=== PATIENT | female | born 1975 | race Two or more races ===

== ENCOUNTER 2019-08-05 11:00 | Inpatient (IN) | payer MEDICAID, OTHER ==
[~2019-08-05] VITALS: Ht 167.6 cm; Wt 91.2 kg
[2019-08-05] MEDS ORDERED: PANTOPRAZOLE 40 MG/10 ML VIAL INJ IV STA (11:36)
[2019-08-05] MEDS ORDERED: SODIUM CHLORIDE 0.9% 1,000 ML IVB ONE (11:36)
[2019-08-05] MEDS ORDERED: ONDANSETRON HCL 4 MG/2 ML VIAL IV ONE (11:45)
[2019-08-05] MEDS ORDERED: MORPHINE SULFATE 4 MG/ML SYR/VIAL IV ONE (11:45)
[2019-08-05 11:53] LABS: Urine WBC None Seen /hpf (0 - 5)
[2019-08-05 11:56] LABS: Eosinophils # (auto) 0 10 ^3/uL (0-0.8); Eosinophils % (auto) 0.2 % (0.0-7.0); Hematocrit 38.5 % (36.0-46.0); Mean Corpuscular Volume 75.8 fL (80.0-100.0); Monocytes # (auto) 0.7 10 ^3/uL (0-1.3); Monocytes % (auto) 4.8 % (0.0-12.0); Nucleated Red Blood Cells % 0.1 %
[2019-08-05 11:59] LABS: Basophils # (auto) 0 10 ^3/uL (0-0.2); Basophils % (auto) 0.3 % (0.0-2.0); Hemoglobin 12.5 g/dL (12.2-16.2); Lymphocytes # (auto) 2.4 10 ^3/uL (0.4-5.4); Lymphocytes % (auto) 16.1 % (10.0-50.0); Mean Corpuscular Hemoglobin 24.6 pg (28.0-32.0); Mean Corpuscular Hgb Conc. 32.4 g/dL (32.0-36.0); Neutrophils # (auto) 11.5 10 ^3/uL (1.6-8.6); Neutrophils % (auto) 78.6 % (37.0-80.0); Platelet Count (auto) 251 10^3/uL (140-450); Red Blood Cells 5.09 10^6/uL (4.0-5.20); Red Cell Distribution Width 15.2 % (11.8-14.3); White Blood Cell 14.7 10^3/uL (4.4-10.8)
[2019-08-05 12:19] LABS: Albumin 3.8 g/dL (3.4-5.0); Calcium 8.6 mg/dL (8.5-10.1); Potassium 4.1 mmol/L (3.5-5.1)
[2019-08-05 12:23] LABS: BUN/Creatinine Ratio 12.9; Bilirubin, Total 0.5 mg/dL (0.2-1.0)
[2019-08-05 12:39] LABS: Urine Bacteria NONE SEEN /hpf (None Seen); Urine Blood 3+ /uL (Negative); Urine Mucus FEW (None Seen)
[2019-08-05] MEDS ORDERED: PIPERACILLIN-TAZOB 3.375GM 100 ML IV ONE (13:00)
[2019-08-05] MEDS ORDERED: HYDROmorphone HCL 2 MG/ML VL IV ONE (14:15)
[2019-08-05] MEDS ORDERED: DEXTROSE (50%) 50ML SYRG IV PRN ×2 (15:15→18:15)
[2019-08-05] MEDS ORDERED: cefTRIAXone 1GM/50ML D5W 50 ML IV ONE (15:15)
[2019-08-05] MEDS ORDERED: MORPHINE SULF INJ 2 MG/ML SYRINGE 1ML IV PRN (15:15)
[2019-08-05] MEDS ORDERED: MANNITOL FTV 25% 12.5 GM/50 ML 50 ML IV ONE (16:15)
[2019-08-05 17:06] VITALS: BP 157/89
[2019-08-05] MEDS: SODIUM CHLORIDE 0.9% 1,000 ML IV SCH (17:07)
[2019-08-05] MEDS: FAMOTIDINE (10MG/ML) 2ML VL IV SCH (17:08)
[2019-08-05] MEDS: ONDANSETRON HCL 4 MG/2 ML VIAL IV SCH (17:08)
[2019-08-05] MEDS: MORPHINE SULF INJ 2 MG/ML SYRINGE 1ML IV PRN ×2 (17:09→22:25)
[2019-08-05] MEDS: TAMSULOSIN HYDROCHLORIDE 0.4 MG CAP PO SCH ×2 (17:22→20:08)
[2019-08-05] MEDS ORDERED: ACCU-CHEK COMFORT CURVE STRIP VI SCH (18:00)
[2019-08-05] MEDS: KETOROLAC TROMETH 30 MG/ML 1ML VIAL IV PRN (20:07)
[2019-08-05] MEDS: metroNIDAZOLE 500MG/100ML 100 ML IV SCH (20:07)
[2019-08-05] MEDS: PROMETHAZINE HCL 25 MG/ML 1ML IV PRN (20:08)
[2019-08-05 21:00] VITALS: BP 139/83
[2019-08-05] MEDS: InsuLIN REG 1unit/0.01ml Soln (100units/ml) SC SCH (22:00)
[2019-08-05] MEDS: ACCU-CHEK COMFORT CURVE STRIP VI SCH (22:10)
[2019-08-06 04:30] VITALS: BP 129/66
[2019-08-06] MEDS: SODIUM CHLORIDE 0.9% 1,000 ML IV SCH ×3 (04:56→20:36)
[2019-08-06] MEDS: FAMOTIDINE (10MG/ML) 2ML VL IV SCH ×2 (04:56→15:43)
[2019-08-06] MEDS: ONDANSETRON HCL 4 MG/2 ML VIAL IV SCH ×4 (05:21→17:42)
[2019-08-06] MEDS: metroNIDAZOLE 500MG/100ML 100 ML IV SCH ×3 (05:21→22:37)
[2019-08-06] MEDS: ACCU-CHEK COMFORT CURVE STRIP VI SCH ×4 (06:23→22:00)
[2019-08-06] MEDS: InsuLIN REG 1unit/0.01ml Soln (100units/ml) SC SCH ×4 (06:24→23:01)
[2019-08-06 07:43] LABS: Basophils # (auto) 0 10 ^3/uL (0-0.2); Eosinophils # (auto) 0 10 ^3/uL (0-0.8); Monocytes # (auto) 0.5 10 ^3/uL (0-1.3); Red Blood Cells 4.57 10^6/uL (4.0-5.20)
[2019-08-06 07:45] LABS: Basophils % (auto) 0.2 % (0.0-2.0); Hemoglobin 11.4 g/dL (12.2-16.2); Lymphocytes # (auto) 0.7 10 ^3/uL (0.4-5.4); Lymphocytes % (auto) 4.5 % (10.0-50.0); Mean Corpuscular Hemoglobin 24.9 pg (28.0-32.0); Mean Corpuscular Hgb Conc. 32.5 g/dL (32.0-36.0); Mean Corpuscular Volume 76.6 fL (80.0-100.0); Monocytes % (auto) 3.2 % (0.0-12.0); Neutrophils % (auto) 92.1 % (37.0-80.0); Platelet Count (auto) 184 10^3/uL (140-450); Red Cell Distribution Width 15.7 % (11.8-14.3); White Blood Cell 16.3 10^3/uL (4.4-10.8)
[2019-08-06 08:01] LABS: Albumin 2.8 g/dL (3.4-5.0); BUN/Creatinine Ratio 10.8; Calcium 7.7 mg/dL (8.5-10.1); Potassium 3.3 mmol/L (3.5-5.1)
[2019-08-06 08:04] LABS: Bilirubin, Total 0.8 mg/dL (0.2-1.0)
[2019-08-06] MEDS: KETOROLAC TROMETH 30 MG/ML 1ML VIAL IV PRN ×3 (08:15→22:37)
[2019-08-06 09:00] VITALS: BP 122/69
[2019-08-06] MEDS: cefTRIAXone 1GM/50ML D5W 50 ML IV SCH (09:57)
[2019-08-06 12:36] VITALS: BP 134/72
[2019-08-06] MEDS: MORPHINE SULF INJ 2 MG/ML SYRINGE 1ML IV PRN ×2 (12:58→19:59)
[2019-08-06] MEDS ORDERED: POTASSIUM EFFERVESENT TAB 25 MEQ PO ONE (14:45)
[2019-08-06 17:36] VITALS: BP 135/75
[2019-08-06] MEDS: TAMSULOSIN HYDROCHLORIDE 0.4 MG CAP PO SCH (17:42)
[2019-08-06 22:00] VITALS: BP 137/71
[2019-08-06] MEDS: ACETAMINOPHEN 325 MG TAB PO PRN (22:38)
[2019-08-07] MEDS: ONDANSETRON HCL 4 MG/2 ML VIAL IV SCH ×4 (00:57→18:19)
[2019-08-07] MEDS: FAMOTIDINE (10MG/ML) 2ML VL IV SCH ×2 (03:22→15:15)
[2019-08-07] MEDS: MORPHINE SULF INJ 2 MG/ML SYRINGE 1ML IV PRN ×3 (04:36→20:09)
[2019-08-07 05:00] VITALS: BP 121/73
[2019-08-07] MEDS: metroNIDAZOLE 500MG/100ML 100 ML IV SCH ×3 (05:58→22:27)
[2019-08-07] MEDS: KETOROLAC TROMETH 30 MG/ML 1ML VIAL IV PRN (05:59)
[2019-08-07] MEDS: ACCU-CHEK COMFORT CURVE STRIP VI SCH ×4 (07:03→22:27)
[2019-08-07] MEDS: SODIUM CHLORIDE 0.9% 1,000 ML IV SCH ×2 (07:03→18:20)
[2019-08-07] MEDS: InsuLIN REG 1unit/0.01ml Soln (100units/ml) SC SCH ×4 (07:04→22:00)
[2019-08-07 08:57] VITALS: BP 123/76
[2019-08-07 09:58] LABS: Basophils # (auto) 0 10 ^3/uL (0-0.2); Eosinophils # (auto) 0 10 ^3/uL (0-0.8); Hemoglobin 10.6 g/dL (12.2-16.2); Lymphocytes # (auto) 0.6 10 ^3/uL (0.4-5.4); Red Cell Distribution Width 15.4 % (11.8-14.3)
[2019-08-07 10:01] LABS: Basophils % (auto) 0.1 % (0.0-2.0); Hematocrit 32.1 % (36.0-46.0); Lymphocytes % (auto) 5.6 % (10.0-50.0); Mean Corpuscular Hemoglobin 25.2 pg (28.0-32.0); Mean Corpuscular Volume 76.3 fL (80.0-100.0); Monocytes # (auto) 0.5 10 ^3/uL (0-1.3); Monocytes % (auto) 5.4 % (0.0-12.0); Neutrophils # (auto) 8.8 10 ^3/uL (1.6-8.6); Neutrophils % (auto) 88.9 % (37.0-80.0); Platelet Count (auto) 151 10^3/uL (140-450); Red Blood Cells 4.21 10^6/uL (4.0-5.20); White Blood Cell 9.9 10^3/uL (4.4-10.8)
[2019-08-07] MEDS: cefTRIAXone 1GM/50ML D5W 50 ML IV SCH (10:06)
[2019-08-07 10:18] LABS: Calcium 7.8 mg/dL (8.5-10.1); Potassium 3.2 mmol/L (3.5-5.1)
[2019-08-07 10:21] LABS: BUN/Creatinine Ratio 11.7
[2019-08-07 10:31] LABS: INR 1.17 (0.9-1.15)
[2019-08-07] MEDS: ACETAMINOPHEN 325 MG TAB PO PRN (11:21)
[2019-08-07 13:00] VITALS: BP 135/72
[2019-08-07] MEDS ORDERED: POTASSIUM EFFERVESENT TAB 25 MEQ PO ONE (16:30)
[2019-08-07] MEDS: TAMSULOSIN HYDROCHLORIDE 0.4 MG CAP PO SCH (18:19)
[2019-08-07 21:00] VITALS: BP 134/79
[2019-08-08] MEDS: ONDANSETRON HCL 4 MG/2 ML VIAL IV SCH ×4 (00:23→17:23)
[2019-08-08] MEDS: MORPHINE SULF INJ 2 MG/ML SYRINGE 1ML IV PRN ×2 (02:25→18:37)
[2019-08-08] MEDS: SODIUM CHLORIDE 0.9% 1,000 ML IV SCH ×3 (03:59→23:06)
[2019-08-08] MEDS: FAMOTIDINE (10MG/ML) 2ML VL IV SCH ×2 (04:00→17:22)
[2019-08-08 05:00] VITALS: BP 143/81
[2019-08-08] MEDS: KETOROLAC TROMETH 30 MG/ML 1ML VIAL IV PRN ×2 (05:55→20:35)
[2019-08-08] MEDS: metroNIDAZOLE 500MG/100ML 100 ML IV SCH ×3 (06:10→21:39)
[2019-08-08] MEDS: ACCU-CHEK COMFORT CURVE STRIP VI SCH ×4 (06:11→21:39)
[2019-08-08] MEDS: InsuLIN REG 1unit/0.01ml Soln (100units/ml) SC SCH ×4 (06:11→21:40)
[2019-08-08 06:23] LABS: Basophils # (auto) 0 10 ^3/uL (0-0.2); Basophils % (auto) 0.1 % (0.0-2.0); Eosinophils # (auto) 0 10 ^3/uL (0-0.8); Eosinophils % (auto) 0.1 % (0.0-7.0); Hemoglobin 9.8 g/dL (12.2-16.2); Red Cell Distribution Width 15.2 % (11.8-14.3)
[2019-08-08 06:25] LABS: Lymphocytes # (auto) 1.3 10 ^3/uL (0.4-5.4); Lymphocytes % (auto) 10.5 % (10.0-50.0); Mean Corpuscular Hemoglobin 24.9 pg (28.0-32.0); Mean Corpuscular Hgb Conc. 32.5 g/dL (32.0-36.0); Mean Corpuscular Volume 76.7 fL (80.0-100.0); Monocytes # (auto) 0.9 10 ^3/uL (0-1.3); Neutrophils # (auto) 10.1 10 ^3/uL (1.6-8.6); Neutrophils % (auto) 82.3 % (37.0-80.0); Platelet Count (auto) 162 10^3/uL (140-450); Red Blood Cells 3.92 10^6/uL (4.0-5.20); White Blood Cell 12.3 10^3/uL (4.4-10.8)
[2019-08-08 06:53] LABS: BUN/Creatinine Ratio 15.4; Calcium 7.7 mg/dL (8.5-10.1); Potassium 3.1 mmol/L (3.5-5.1)
[2019-08-08 09:00] VITALS: BP 136/82
[2019-08-08] MEDS: cefTRIAXone 1GM/50ML D5W 50 ML IV SCH (09:27)
[2019-08-08 13:00] VITALS: BP 128/80
[2019-08-08] MEDS ORDERED: ceFAZolin 1GM/50ML 50 ML IV ONE (13:12)
[2019-08-08] MEDS ORDERED: SUCCINYLCHOLINE CHLORIDE 20 MG/ML 10ML VIAL IV ONE (13:29)
[2019-08-08] MEDS ORDERED: LIDOCAINE 1% (LOCAL ANESTH.) PF 5ml SDV ONE (13:29)
[2019-08-08] MEDS ORDERED: MIDAZOLAM HCL 1MG/1ML-2 ML VIAL ONE (13:39)
[2019-08-08] MEDS ORDERED: PROPOFOL 10 MG/ML 20 ML IV ONE (13:46)
[2019-08-08] MEDS ORDERED: fentaNYL CITRATE 100 MCG/2 ML VL ONE (13:54)
[2019-08-08] MEDS ORDERED: HYDROmorphone HCL 2 MG/ML VL IV PRN ×2 (14:15)
[2019-08-08] MEDS ORDERED: ACCU-CHEK COMFORT CURVE STRIP VI ONE (14:15)
[2019-08-08] MEDS ORDERED: ONDANSETRON HCL 4 MG/2 ML VIAL IV PRN (14:15)
[2019-08-08] MEDS ORDERED: POTASSIUM EFFERVESENT TAB 25 MEQ PO ONE (14:15)
[2019-08-08] MEDS ORDERED: NALOXONE HCL 0.4 MG/ML VIAL IV PRN (14:15)
[2019-08-08] MEDS: IOHEXOL 300 MG/ML 100ML BOTTLE IJ ONE ×2 (14:30→17:21)
[2019-08-08 16:00] VITALS: BP 146/82
[2019-08-08] MEDS: TAMSULOSIN HYDROCHLORIDE 0.4 MG CAP PO SCH (17:23)
[2019-08-08 20:00] VITALS: BP 130/81
[2019-08-08 21:32] VITALS: BP 130/81
[2019-08-09] MEDS: ONDANSETRON HCL 4 MG/2 ML VIAL IV SCH ×4 (00:08→18:00)
[2019-08-09] MEDS: FAMOTIDINE (10MG/ML) 2ML VL IV SCH ×2 (03:29→14:50)
[2019-08-09] MEDS: KETOROLAC TROMETH 30 MG/ML 1ML VIAL IV PRN ×3 (03:35→21:56)
[2019-08-09 05:00] VITALS: BP 131/82
[2019-08-09] MEDS: metroNIDAZOLE 500MG/100ML 100 ML IV SCH ×3 (06:03→21:48)
[2019-08-09] MEDS: InsuLIN REG 1unit/0.01ml Soln (100units/ml) SC SCH ×4 (06:13→21:49)
[2019-08-09] MEDS: ACCU-CHEK COMFORT CURVE STRIP VI SCH ×4 (06:16→21:48)
[2019-08-09] MEDS: SODIUM CHLORIDE 0.9% 1,000 ML IV SCH (06:20)
[2019-08-09 06:32] LABS: Basophils # (auto) 0 10 ^3/uL (0-0.2); Eosinophils # (auto) 0 10 ^3/uL (0-0.8); Eosinophils % (auto) 0.3 % (0.0-7.0); Hemoglobin 8.9 g/dL (12.2-16.2); Mean Corpuscular Volume 76.5 fL (80.0-100.0); Monocytes # (auto) 0.8 10 ^3/uL (0-1.3); Neutrophils # (auto) 8.8 10 ^3/uL (1.6-8.6); Platelet Count (auto) 162 10^3/uL (140-450); White Blood Cell 11.2 10^3/uL (4.4-10.8)
[2019-08-09 06:36] LABS: Basophils % (auto) 0.2 % (0.0-2.0); Hematocrit 27.8 % (36.0-46.0); Lymphocytes # (auto) 1.4 10 ^3/uL (0.4-5.4); Lymphocytes % (auto) 12.7 % (10.0-50.0); Mean Corpuscular Hemoglobin 24.5 pg (28.0-32.0); Mean Corpuscular Hgb Conc. 32.1 g/dL (32.0-36.0); Monocytes % (auto) 7.6 % (0.0-12.0); Neutrophils % (auto) 79.2 % (37.0-80.0); Red Blood Cells 3.63 10^6/uL (4.0-5.20); Red Cell Distribution Width 14.9 % (11.8-14.3)
[2019-08-09 06:51] LABS: Potassium 3.2 mmol/L (3.5-5.1)
[2019-08-09 07:00] LABS: BUN/Creatinine Ratio 17.1; Calcium 7.7 mg/dL (8.5-10.1)
[2019-08-09 08:39] VITALS: BP 136/86
[2019-08-09] MEDS: cefTRIAXone 1GM/50ML D5W 50 ML IV SCH (10:30)
[2019-08-09] MEDS ORDERED: POTASSIUM EFFERVESENT TAB 25 MEQ PO ONE (10:45)
[2019-08-09 13:00] VITALS: BP 142/88
[2019-08-09 15:43] LABS: Basophils # (auto) 0 10 ^3/uL (0-0.2); Eosinophils # (auto) 0.1 10 ^3/uL (0-0.8); Lymphocytes # (auto) 1.9 10 ^3/uL (0.4-5.4); Mean Corpuscular Hemoglobin 24.2 pg (28.0-32.0); Mean Corpuscular Hgb Conc. 31.7 g/dL (32.0-36.0); White Blood Cell 12.8 10^3/uL (4.4-10.8)
[2019-08-09 15:45] LABS: Basophils % (auto) 0.1 % (0.0-2.0); Eosinophils % (auto) 0.4 % (0.0-7.0); Hematocrit 29.8 % (36.0-46.0); Hemoglobin 9.4 g/dL (12.2-16.2); Lymphocytes % (auto) 14.9 % (10.0-50.0); Mean Corpuscular Volume 76.4 fL (80.0-100.0); Monocytes % (auto) 8.2 % (0.0-12.0); Neutrophils # (auto) 9.7 10 ^3/uL (1.6-8.6); Neutrophils % (auto) 76.4 % (37.0-80.0); Nucleated Red Blood Cells % 0.1 %; Platelet Count (auto) 200 10^3/uL (140-450); Red Cell Distribution Width 14.8 % (11.8-14.3)
[2019-08-09 16:32] VITALS: BP 158/88
[2019-08-09] MEDS: MORPHINE SULF INJ 2 MG/ML SYRINGE 1ML IV PRN ×2 (17:00→20:39)
[2019-08-09] MEDS: PROMETHAZINE HCL 25 MG/ML 1ML IV PRN (17:00)
[2019-08-09] MEDS: TAMSULOSIN HYDROCHLORIDE 0.4 MG CAP PO SCH (18:15)
[2019-08-09 20:00] VITALS: BP 151/93
[2019-08-09 21:37] LABS: INR 1.17 (0.9-1.15); Partial Thromboplastin Time 28.8 sec (23.64-32.05)
[2019-08-09 21:39] VITALS: BP 151/93
[2019-08-09] MEDS: D5W/SOD CHL 0.45%/KCL 20MEQ 1,000 ML IV SCH (21:48)
[2019-08-10] MEDS: ONDANSETRON HCL 4 MG/2 ML VIAL IV SCH ×5 (00:37→23:42)
[2019-08-10] MEDS: MORPHINE SULF INJ 2 MG/ML SYRINGE 1ML IV PRN ×2 (00:37→23:52)
[2019-08-10] MEDS: FAMOTIDINE (10MG/ML) 2ML VL IV SCH ×2 (03:11→14:20)
[2019-08-10] MEDS: D5W/SOD CHL 0.45%/KCL 20MEQ 1,000 ML IV SCH ×4 (04:05→23:53)
[2019-08-10 05:00] VITALS: BP 149/83
[2019-08-10] MEDS: KETOROLAC TROMETH 30 MG/ML 1ML VIAL IV PRN ×2 (05:20→14:15)
[2019-08-10] MEDS: ACCU-CHEK COMFORT CURVE STRIP VI SCH ×4 (06:37→21:37)
[2019-08-10] MEDS: InsuLIN REG 1unit/0.01ml Soln (100units/ml) SC SCH ×4 (06:38→21:37)
[2019-08-10] MEDS: metroNIDAZOLE 500MG/100ML 100 ML IV SCH ×3 (06:40→21:37)
[2019-08-10 07:45] LABS: Basophils # (auto) 0 10 ^3/uL (0-0.2); Hemoglobin 9.5 g/dL (12.2-16.2); Lymphocytes # (auto) 1.5 10 ^3/uL (0.4-5.4); Monocytes # (auto) 0.9 10 ^3/uL (0-1.3)
[2019-08-10 07:47] LABS: Basophils % (auto) 0.2 % (0.0-2.0); Eosinophils # (auto) 0.1 10 ^3/uL (0-0.8); Eosinophils % (auto) 0.6 % (0.0-7.0); Hematocrit 29.2 % (36.0-46.0); Lymphocytes % (auto) 13.9 % (10.0-50.0); Mean Corpuscular Hemoglobin 24.6 pg (28.0-32.0); Mean Corpuscular Hgb Conc. 32.5 g/dL (32.0-36.0); Mean Corpuscular Volume 75.6 fL (80.0-100.0); Monocytes % (auto) 8.3 % (0.0-12.0); Neutrophils # (auto) 8.5 10 ^3/uL (1.6-8.6); Platelet Count (auto) 207 10^3/uL (140-450); Red Blood Cells 3.86 10^6/uL (4.0-5.20); White Blood Cell 11.1 10^3/uL (4.4-10.8)
[2019-08-10 08:08] LABS: BUN/Creatinine Ratio 16.7; Calcium 7.9 mg/dL (8.5-10.1)
[2019-08-10] MEDS ORDERED: ceFAZolin 1GM/50ML 50 ML IV ONE (08:14)
[2019-08-10 09:00] VITALS: BP 148/85
[2019-08-10] MEDS ORDERED: POTASSIUM CHL 20MEQ/100ML 100 ML IV ONE (09:25)
[2019-08-10] MEDS ORDERED: fentaNYL CITRATE 100 MCG/2 ML VL ONE (09:28)
[2019-08-10] MEDS ORDERED: MIDAZOLAM HCL 1MG/1ML-2 ML VIAL ONE (09:28)
[2019-08-10] MEDS ORDERED: MEPERIDINE HCL (25 MG/ML) 1ML VIAL ONE (09:29)
[2019-08-10] MEDS ORDERED: NEOSTIGMINE 1 MG/ML INJ (10mg/10ML VIAL) IV ONE (09:29)
[2019-08-10] MEDS ORDERED: GLYCOPYRROLATE 0.2 MG/ML 1ML VIAL IV ONE (09:29)
[2019-08-10] MEDS ORDERED: DexAMETHasone SOD PHOS 10MG/1ML VIAL INJ ONE (09:29)
[2019-08-10] MEDS ORDERED: PHENYLEPHRINE HCL 10 MG/ML VL IV ONE (09:29)
[2019-08-10] MEDS ORDERED: PROPOFOL 10 MG/ML 20 ML IV ONE (09:29)
[2019-08-10] MEDS ORDERED: SUCCINYLCHOLINE CHLORIDE 20 MG/ML 10ML VIAL IV ONE (09:41)
[2019-08-10] MEDS ORDERED: POVIDONE IODINE 10 % TOPICAL OINT 30GM TOP ONE (09:43)
[2019-08-10] MEDS ORDERED: GLYCOPYRROLATE 0.2 MG/ML 1ML VIAL ONE (10:33)
[2019-08-10] MEDS ORDERED: NEOSTIGMINE 1 MG/ML INJ (10mg/10ML VIAL) ONE (10:33)
[2019-08-10] MEDS ORDERED: HYDROmorphone HCL 2 MG/ML VL IV PRN (11:00)
[2019-08-10] MEDS ORDERED: LABETALOL HCL 5 MG/ML 4ML SYRINGE IV PRN (11:00)
[2019-08-10] MEDS ORDERED: ONDANSETRON HCL 4 MG/2 ML VIAL IV PRN (11:00)
[2019-08-10] MEDS ORDERED: MORPHINE SULFATE 4 MG/ML SYR/VIAL IV PRN (11:00)
[2019-08-10] MEDS ORDERED: ePHEDrine SULFATE 50 MG/ML AMP IV PRN (11:00)
[2019-08-10] MEDS ORDERED: MIDAZOLAM HCL 1MG/1ML-2 ML VIAL IV PRN (11:00)
[2019-08-10] MEDS: cefTRIAXone 1GM/50ML D5W 50 ML IV SCH (12:39)
[2019-08-10 12:57] VITALS: BP 147/92
[2019-08-10 17:00] VITALS: BP 150/90
[2019-08-10] MEDS: TAMSULOSIN HYDROCHLORIDE 0.4 MG CAP PO SCH (19:02)
[2019-08-10 20:00] VITALS: BP 141/76
[2019-08-10 22:00] VITALS: BP 141/76
[2019-08-11] MEDS: FAMOTIDINE (10MG/ML) 2ML VL IV SCH ×2 (04:01→14:01)
[2019-08-11 05:00] VITALS: BP 142/87
[2019-08-11 06:02] LABS: Basophils # (auto) 0 10 ^3/uL (0-0.2); Basophils % (auto) 0.1 % (0.0-2.0); Eosinophils # (auto) 0 10 ^3/uL (0-0.8); Eosinophils % (auto) 0.1 % (0.0-7.0); Hemoglobin 9.2 g/dL (12.2-16.2)
[2019-08-11 06:04] LABS: Hematocrit 28.8 % (36.0-46.0); Lymphocytes # (auto) 2.1 10 ^3/uL (0.4-5.4); Lymphocytes % (auto) 12.9 % (10.0-50.0); Mean Corpuscular Hemoglobin 23.8 pg (28.0-32.0); Mean Corpuscular Hgb Conc. 31.8 g/dL (32.0-36.0); Monocytes # (auto) 1.2 10 ^3/uL (0-1.3); Monocytes % (auto) 7.1 % (0.0-12.0); Neutrophils # (auto) 12.9 10 ^3/uL (1.6-8.6); Neutrophils % (auto) 79.8 % (37.0-80.0); Platelet Count (auto) 237 10^3/uL (140-450); Red Blood Cells 3.85 10^6/uL (4.0-5.20); Red Cell Distribution Width 15.3 % (11.8-14.3); White Blood Cell 16.2 10^3/uL (4.4-10.8)
[2019-08-11 06:30] LABS: Potassium 3.4 mmol/L (3.5-5.1)
[2019-08-11] MEDS: metroNIDAZOLE 500MG/100ML 100 ML IV SCH ×3 (06:30→21:36)
[2019-08-11] MEDS: ACCU-CHEK COMFORT CURVE STRIP VI SCH ×4 (06:30→22:00)
[2019-08-11] MEDS: InsuLIN REG 1unit/0.01ml Soln (100units/ml) SC SCH ×4 (06:30→22:00)
[2019-08-11] MEDS: ONDANSETRON HCL 4 MG/2 ML VIAL IV SCH ×3 (06:32→18:00)
[2019-08-11] MEDS: MORPHINE SULF INJ 2 MG/ML SYRINGE 1ML IV PRN ×3 (06:43→21:36)
[2019-08-11 06:58] LABS: Albumin 2.2 g/dL (3.4-5.0); BUN/Creatinine Ratio 13.3; Calcium 7.9 mg/dL (8.5-10.1)
[2019-08-11 07:01] LABS: Bilirubin, Total 0.4 mg/dL (0.2-1.0); Total Protein 6.4 g/dL (6.4-8.2)
[2019-08-11 09:00] VITALS: BP 141/88
[2019-08-11] MEDS: cefTRIAXone 1GM/50ML D5W 50 ML IV SCH (10:41)
[2019-08-11 13:00] VITALS: BP 149/83
[2019-08-11] MEDS: SOD CHL 0.9%/ KCL 20MEQ 1,000 ML IV SCH (14:00)
[2019-08-11 17:00] VITALS: BP 139/92
[2019-08-11 20:00] VITALS: BP 144/96
[2019-08-11 22:00] VITALS: BP 144/96
[2019-08-12] MEDS: ONDANSETRON HCL 4 MG/2 ML VIAL IV SCH ×5 (02:36→22:15)
[2019-08-12] MEDS: FAMOTIDINE (10MG/ML) 2ML VL IV SCH (03:21)
[2019-08-12] MEDS: SOD CHL 0.9%/ KCL 20MEQ 1,000 ML IV SCH ×2 (03:21→15:54)
[2019-08-12 05:00] VITALS: BP 148/82
[2019-08-12 05:26] LABS: Basophils # (auto) 0.1 10 ^3/uL (0-0.2); Basophils % (auto) 0.3 % (0.0-2.0); Eosinophils # (auto) 0 10 ^3/uL (0-0.8); Eosinophils % (auto) 0.3 % (0.0-7.0); Hematocrit 31.8 % (36.0-46.0); Hemoglobin 10.8 g/dL (12.2-16.2); Lymphocytes # (auto) 2.3 10 ^3/uL (0.4-5.4); Lymphocytes % (auto) 14.3 % (10.0-50.0); Mean Corpuscular Hemoglobin 25.4 pg (28.0-32.0); Mean Corpuscular Volume 74.8 fL (80.0-100.0); Monocytes # (auto) 1.1 10 ^3/uL (0-1.3); Neutrophils # (auto) 12.6 10 ^3/uL (1.6-8.6); Neutrophils % (auto) 78.1 % (37.0-80.0); Nucleated Red Blood Cells % 0.1 %; Platelet Count (auto) 283 10^3/uL (140-450); Red Blood Cells 4.25 10^6/uL (4.0-5.20); Red Cell Distribution Width 15.4 % (11.8-14.3); White Blood Cell 16.2 10^3/uL (4.4-10.8)
[2019-08-12 05:40] LABS: Potassium 3.1 mmol/L (3.5-5.1)
[2019-08-12] MEDS: metroNIDAZOLE 500MG/100ML 100 ML IV SCH (05:50)
[2019-08-12] MEDS: MORPHINE SULF INJ 2 MG/ML SYRINGE 1ML IV PRN ×4 (05:50→22:15)
[2019-08-12 05:54] LABS: BUN/Creatinine Ratio 14.3; Calcium 7.8 mg/dL (8.5-10.1)
[2019-08-12] MEDS: ACCU-CHEK COMFORT CURVE STRIP VI SCH ×4 (06:40→22:15)
[2019-08-12] MEDS: InsuLIN REG 1unit/0.01ml Soln (100units/ml) SC SCH ×4 (06:40→22:00)
[2019-08-12 09:00] VITALS: BP 149/87
[2019-08-12] MEDS: cefTRIAXone 1GM/50ML D5W 50 ML IV SCH (09:52)
[2019-08-12] MEDS ORDERED: POTASSIUM CHL 20 Meq TABLET PO ONE (12:00)
[2019-08-12 13:00] VITALS: BP 138/82
[2019-08-12] MEDS: metroNIDAZOLE 500 MG TAB PO SCH ×2 (15:46→22:14)
[2019-08-12 17:00] VITALS: BP 149/89
[2019-08-12 20:00] VITALS: BP 154/84
[2019-08-12 22:00] VITALS: BP 154/84
[2019-08-13] MEDS: HYDROcodone-ACET 5/325MG TAB PO PRN ×3 (00:16→15:37)
[2019-08-13] MEDS: MORPHINE SULF INJ 2 MG/ML SYRINGE 1ML IV PRN ×2 (01:48→06:05)
[2019-08-13 05:00] VITALS: BP 151/99
[2019-08-13] MEDS: SOD CHL 0.9%/ KCL 20MEQ 1,000 ML IV SCH (05:04)
[2019-08-13] MEDS: ONDANSETRON HCL 4 MG/2 ML VIAL IV SCH ×4 (05:04→23:51)
[2019-08-13] MEDS: metroNIDAZOLE 500 MG TAB PO SCH ×3 (05:04→21:41)
[2019-08-13] MEDS: ACCU-CHEK COMFORT CURVE STRIP VI SCH ×4 (05:58→21:41)
[2019-08-13] MEDS: InsuLIN REG 1unit/0.01ml Soln (100units/ml) SC SCH ×4 (06:07→22:44)
[2019-08-13 06:42] LABS: Basophils # (auto) 0 10 ^3/uL (0-0.2); Basophils % (auto) 0.3 % (0.0-2.0); Eosinophils # (auto) 0.1 10 ^3/uL (0-0.8); Eosinophils % (auto) 0.5 % (0.0-7.0); Neutrophils # (auto) 10.3 10 ^3/uL (1.6-8.6)
[2019-08-13 06:50] LABS: Hematocrit 32.9 % (36.0-46.0); Hemoglobin 10.5 g/dL (12.2-16.2); Lymphocytes # (auto) 1.9 10 ^3/uL (0.4-5.4); Lymphocytes % (auto) 14.1 % (10.0-50.0); Mean Corpuscular Hemoglobin 24.3 pg (28.0-32.0); Monocytes % (auto) 7.3 % (0.0-12.0); Neutrophils % (auto) 77.8 % (37.0-80.0); Nucleated Red Blood Cells % 0.1 %; Platelet Count (auto) 288 10^3/uL (140-450); Red Blood Cells 4.33 10^6/uL (4.0-5.20); Red Cell Distribution Width 15.3 % (11.8-14.3); White Blood Cell 13.2 10^3/uL (4.4-10.8)
[2019-08-13 07:08] LABS: Potassium 3.5 mmol/L (3.5-5.1)
[2019-08-13 07:11] LABS: BUN/Creatinine Ratio 10.9
[2019-08-13] MEDS: FAMOTIDINE 20 MG TAB PO SCH (08:58)
[2019-08-13] MEDS: cefTRIAXone 1GM/50ML D5W 50 ML IV SCH (08:59)
[2019-08-13 09:11] VITALS: BP 147/81
[2019-08-13 12:42] VITALS: BP 141/76
[2019-08-13 16:31] VITALS: BP 158/90
[2019-08-13 22:27] VITALS: BP 134/82
[2019-08-14 05:00] VITALS: BP 146/93
[2019-08-14] MEDS: ONDANSETRON HCL 4 MG/2 ML VIAL IV SCH ×4 (05:59→23:41)
[2019-08-14] MEDS: metroNIDAZOLE 500 MG TAB PO SCH ×3 (05:59→21:28)
[2019-08-14] MEDS: ACCU-CHEK COMFORT CURVE STRIP VI SCH ×4 (06:45→21:31)
[2019-08-14] MEDS: InsuLIN REG 1unit/0.01ml Soln (100units/ml) SC SCH ×4 (06:49→21:28)
[2019-08-14 09:00] VITALS: BP 136/87
[2019-08-14] MEDS: FAMOTIDINE 20 MG TAB PO SCH (10:03)
[2019-08-14] MEDS: cefTRIAXone 1GM/50ML D5W 50 ML IV SCH (10:03)
[2019-08-14] MEDS: HYDROcodone-ACET 5/325MG TAB PO PRN ×2 (11:35→19:53)
[2019-08-14 13:00] VITALS: BP 137/86
[2019-08-14 17:00] VITALS: BP 142/85
[2019-08-14 22:00] VITALS: BP 124/83
[2019-08-15] MEDS: metroNIDAZOLE 500 MG TAB PO SCH ×2 (05:44→12:48)
[2019-08-15] MEDS: ONDANSETRON HCL 4 MG/2 ML VIAL IV SCH ×2 (05:44→12:48)
[2019-08-15] MEDS: HYDROcodone-ACET 5/325MG TAB PO PRN ×2 (05:56→14:14)
[2019-08-15 06:27] LABS: Mean Corpuscular Hgb Conc. 32.5 g/dL (32.0-36.0)
[2019-08-15 06:33] LABS: Basophils # (auto) 0 10 ^3/uL (0-0.2); Basophils % (auto) 0.3 % (0.0-2.0); Calcium 8.4 mg/dL (8.5-10.1); Eosinophils # (auto) 0.1 10 ^3/uL (0-0.8); Eosinophils % (auto) 0.7 % (0.0-7.0); Hematocrit 34.9 % (36.0-46.0); Hemoglobin 11.3 g/dL (12.2-16.2); Lymphocytes # (auto) 2.6 10 ^3/uL (0.4-5.4); Lymphocytes % (auto) 17.6 % (10.0-50.0); Mean Corpuscular Hemoglobin 24.3 pg (28.0-32.0); Mean Corpuscular Volume 74.9 fL (80.0-100.0); Monocytes # (auto) 0.9 10 ^3/uL (0-1.3); Monocytes % (auto) 5.9 % (0.0-12.0); Neutrophils # (auto) 11.1 10 ^3/uL (1.6-8.6); Neutrophils % (auto) 75.5 % (37.0-80.0); Platelet Count (auto) 341 10^3/uL (140-450); Potassium 3.6 mmol/L (3.5-5.1); Red Blood Cells 4.66 10^6/uL (4.0-5.20); Red Cell Distribution Width 15.6 % (11.8-14.3); White Blood Cell 14.7 10^3/uL (4.4-10.8)
[2019-08-15 06:36] LABS: BUN/Creatinine Ratio 13.2
[2019-08-15] MEDS: ACCU-CHEK COMFORT CURVE STRIP VI SCH ×2 (06:38→12:51)
[2019-08-15] MEDS: InsuLIN REG 1unit/0.01ml Soln (100units/ml) SC SCH ×2 (06:39→12:50)
[2019-08-15] MEDS: cefTRIAXone 1GM/50ML D5W 50 ML IV SCH (08:56)
[2019-08-15] MEDS: FAMOTIDINE 20 MG TAB PO SCH (08:56)
[2019-08-15 09:00] VITALS: BP 126/80
[2019-08-15 13:00] VITALS: BP 134/89
[2019-08-15 14:19] VITALS: BP 134/89
== END 2019-08-15 16:00 | disposition home or self-care (01) | DRG 710 ==
LOC: ER 11:00 → OVERFLOW 11:01 → WEST WING 15:22
PROVIDERS: ADMIT Internal Medicine; ATTEND Internal Medicine
PROC: 0TF6XZZ Fragmentation in Right Ureter, External Approach (ICD-10-PCS; 2019-08-08)
PROC: 0TF4XZZ Fragmentation in Left Kidney Pelvis, External Approach (ICD-10-PCS; principal; 2019-08-08 13:40)
PROC: 0DTJ4ZZ Resection of Appendix, Percutaneous Endoscopic Approach (ICD-10-PCS; 2019-08-10)
PROC: 0W9J40Z Drainage of Pelvic Cavity with Drainage Device, Percutaneous Endoscopic Approach (ICD-10-PCS; 2019-08-10)
DX: A41.9 Sepsis, unspecified organism (principal); K35.33 Acute appendicitis with perforation, localized peritonitis, and gangrene, with abscess; E44.0 Moderate protein-calorie malnutrition; E87.1 Hypo-osmolality and hyponatremia; R16.2 Hepatomegaly with splenomegaly, not elsewhere classified; E66.9 Obesity, unspecified; K80.20 Calculus of gallbladder without cholecystitis without obstruction; E87.6 Hypokalemia; I10 Essential (primary) hypertension; Z20.828 Contact with and (suspected) exposure to other viral communicable diseases; N73.9 Female pelvic inflammatory disease, unspecified; Z83.3 Family history of diabetes mellitus; Z87.442 Personal history of urinary calculi; Z79.899 Other long term (current) drug therapy; N13.2 Hydronephrosis with renal and ureteral calculous obstruction; Z68.31 Body mass index [BMI] 31.0-31.9, adult
CPT/HCPCS: 36415; 71045; 74018; 74176; 76705; 76830; 76856; 78226; 80048; 80053; 81001; 81025; 82962; 83036; 83690; 84443; 85025; 85610; 85730; 86850; 86900; 86901; 87070; 87075; 87076; 87077; 87086; 87186; 87205; 88302; 93005; 96365; 96375; A4565; C9113; G0378; J0330; J0690; J0696; J1100; J1815; J1885; J2250; J2405; J2543; J2704; J3480; J3490

== ENCOUNTER 2019-08-20 05:18 | Inpatient (IN) | payer MEDICAID ==
[~2019-08-20] VITALS: Ht 165.1 cm; Wt 82.3 kg
[2019-08-20 06:57] LABS: Urine Bacteria NONE SEEN /hpf (None Seen); Urine Blood Negative /uL (Negative); Urine Specific Gravity 1.014 (1.001-1.035); Urine WBC 2 /hpf (0 - 5)
[2019-08-20] MEDS ORDERED: SODIUM CHLORIDE 0.9% 500 ML IVB ONE (07:13)
[2019-08-20] MEDS ORDERED: SODIUM CHLORIDE 0.9% 1,000 ML IV ONE (07:13)
[2019-08-20] MEDS ORDERED: HYDROmorphone HCL 2 MG/ML VL IV ONE (07:15)
[2019-08-20] MEDS: PROMETHAZINE HCL 25 MG/ML 1ML IV PRN ×2 (08:12→14:26)
[2019-08-20 08:46] LABS: Basophils # (auto) 0 10 ^3/uL (0-0.2); Eosinophils # (auto) 0 10 ^3/uL (0-0.8); Hemoglobin 10.9 g/dL (12.2-16.2); Monocytes # (auto) 0.9 10 ^3/uL (0-1.3); Monocytes % (auto) 7.1 % (0.0-12.0); Neutrophils # (auto) 10.3 10 ^3/uL (1.6-8.6); Red Blood Cells 4.52 10^6/uL (4.0-5.20)
[2019-08-20 08:54] LABS: Basophils % (auto) 0.2 % (0.0-2.0); Eosinophils % (auto) 0.2 % (0.0-7.0); Hematocrit 33.9 % (36.0-46.0); Lymphocytes # (auto) 1.8 10 ^3/uL (0.4-5.4); Lymphocytes % (auto) 13.8 % (10.0-50.0); Mean Corpuscular Hemoglobin 24.2 pg (28.0-32.0); Mean Corpuscular Hgb Conc. 32.2 g/dL (32.0-36.0); Mean Corpuscular Volume 75.1 fL (80.0-100.0); Neutrophils % (auto) 78.7 % (37.0-80.0); Nucleated Red Blood Cells % 0.2 %; Platelet Count (auto) 337 10^3/uL (140-450); Red Cell Distribution Width 16.1 % (11.8-14.3)
[2019-08-20 09:02] LABS: INR 1.22 (0.9-1.15); Partial Thromboplastin Time 29.2 sec (23.64-32.05)
[2019-08-20 09:12] LABS: Albumin 2.8 g/dL (3.4-5.0); Calcium 8.4 mg/dL (8.5-10.1); Potassium 3.9 mmol/L (3.5-5.1)
[2019-08-20 09:17] LABS: Bilirubin, Total 0.5 mg/dL (0.2-1.0); Magnesium 2.2 mg/dL (1.6-2.6); Total Protein 7.8 g/dL (6.4-8.2)
[2019-08-20] MEDS ORDERED: DEXTROSE (50%) 50ML SYRG IV PRN (10:45)
[2019-08-20] MEDS ORDERED: levoFLOXacin 500MG 100 ML IV ONE (10:45)
[2019-08-20] MEDS ORDERED: TEMAZEPAM 15 MG CAP PO PRN (10:45)
[2019-08-20] MEDS ORDERED: ALBUTEROL SULF 2.5 MG/0.5ML(0.5%) NEB SOLN NEB PRN (10:45)
[2019-08-20] MEDS: InsuLIN REG 1unit/0.01ml Soln (100units/ml) SC SCH ×3 (11:30→22:12)
[2019-08-20] MEDS ORDERED: IOHEXOL 300 MG/ML 100ML BOTTLE IJ ONE (11:30)
[2019-08-20] MEDS: ACCU-CHEK COMFORT CURVE STRIP VI SCH ×3 (11:53→21:38)
[2019-08-20] MEDS: FAMOTIDINE 20 MG TAB PO SCH ×2 (12:10→21:43)
[2019-08-20 13:00] VITALS: BP 117/67
--- NOTE | 2019-08-20 13:00 | NUR ---
MED SURG admit from [facility] admitted to med surg unit after SBAR received. Patient oriented to MARION ESPINOZA RN primary RN, unit, room, bed, and unit policies regarding patient care and visiting hours. Patient weighed by bedscale and encouraged to call if they need something. All questions and concerns addressed, patient verbalized understanding.
[2019-08-20] MEDS: CLINDAMYCIN 600MG IV 50 ML IV SCH ×2 (14:16→21:42)
--- NOTE | 2019-08-20 14:17 | NUR ---
RT NOTE: WENT TO PTS ROOM TO ASSESS FOR PRN TX, NO INDICATION FOR TX AT THIS TIME. HR 99, RR 16, SPO2 97% ON RA, WILL CONTINUE TO MONITOR PT.
[2019-08-20] MEDS: MORPHINE SULF INJ 2 MG/ML SYRINGE 1ML IV PRN (14:26)
[2019-08-20 14:27] VITALS: BP 108/74
[2019-08-20] MEDS ORDERED: METR500T14 PO (15:25)
[2019-08-20] MEDS ORDERED: HYDR-4833 PO (15:25)
[2019-08-20] MEDS ORDERED: LEVO-28 PO (15:25)
[2019-08-20] MEDS ORDERED: CEPH250C2 PO (15:25)
[2019-08-20 16:47] VITALS: BP 118/72
[2019-08-20] MEDS: HYDROcodone-ACET 5/325MG TAB PO PRN (18:06)
--- NOTE | 2019-08-20 18:22 | NUR ---
RT NOTE PT WAS SEEN BY RT FOR PN HHN TX. PT IS SITTING UP IN BED EATING EVENING MEAL WITHOUT SOB OR DISTRESS. HR 104, RR 20, BS CLEAR, PO 95% ON ROOM AIR. PT STATES NO TREATMENT NEEDED AND THAT SHE AWARE TO CALL IF SOB OR WHEEZING. NO PRN TX INDICATED AT THIS TIME. CONT ORDERED Addendum: 08/20/19 at 1832 by Paula Lua RT Amended: Links added.
--- NOTE | 2019-08-20 19:12 | NUR ---
Opening Shift Note Assumed care of patient. Patient is awake, alert, and oriented X 4. No S/S of respiratory distress noted. Respirations are regular, non-labored. No pain, nausea, or vomiting reported. Pt is on RA. CLAIRE drain is intact and patient. Bed in lowest possible position, brakes locked, side rails up X 2, call light within reach. POC discussed with the patient. Patient instructed to call for assistance PRN. Will continue to monitor for changes Q1hr and PRN.
--- NOTE | 2019-08-20 19:14 | NUR ---
Endorsed care to night VERO Leon. Addendum: 08/20/19 at 1923 by MARION ESPINOZA RN RN RN. Marla
[2019-08-20 20:00] VITALS: BP 116/76
[2019-08-20] MEDS: ACETAMINOPHEN 500 MG TAB PO PRN (21:43)
[2019-08-20 22:00] VITALS: BP 116/76
[2019-08-21] MEDS: HYDROcodone-ACET 5/325MG TAB PO PRN ×2 (00:51→10:43)
[2019-08-21 05:00] VITALS: BP 115/71
[2019-08-21 06:20] LABS: Basophils # (auto) 0 10 ^3/uL (0-0.2); Eosinophils # (auto) 0 10 ^3/uL (0-0.8); Eosinophils % (auto) 0.4 % (0.0-7.0); Hemoglobin 10.7 g/dL (12.2-16.2); Neutrophils # (auto) 9.5 10 ^3/uL (1.6-8.6)
[2019-08-21 06:23] LABS: Basophils % (auto) 0.1 % (0.0-2.0); Hematocrit 32.9 % (36.0-46.0); Lymphocytes # (auto) 1.9 10 ^3/uL (0.4-5.4); Mean Corpuscular Hemoglobin 24.6 pg (28.0-32.0); Mean Corpuscular Hgb Conc. 32.6 g/dL (32.0-36.0); Mean Corpuscular Volume 75.7 fL (80.0-100.0); Monocytes % (auto) 8.1 % (0.0-12.0); Neutrophils % (auto) 76.4 % (37.0-80.0); Platelet Count (auto) 330 10^3/uL (140-450); Red Blood Cells 4.35 10^6/uL (4.0-5.20); Red Cell Distribution Width 15.9 % (11.8-14.3); White Blood Cell 12.4 10^3/uL (4.4-10.8)
[2019-08-21] MEDS: ACCU-CHEK COMFORT CURVE STRIP VI SCH ×4 (06:28→21:50)
[2019-08-21] MEDS: MORPHINE SULF INJ 2 MG/ML SYRINGE 1ML IV PRN ×3 (06:39→22:50)
[2019-08-21] MEDS: CLINDAMYCIN 600MG IV 50 ML IV SCH ×2 (06:39→14:15)
[2019-08-21] MEDS: PROMETHAZINE HCL 25 MG/ML 1ML IV PRN ×2 (06:40→17:22)
[2019-08-21] MEDS: InsuLIN REG 1unit/0.01ml Soln (100units/ml) SC SCH ×4 (06:41→21:58)
[2019-08-21 06:57] LABS: Albumin 2.6 g/dL (3.4-5.0); Calcium 8.4 mg/dL (8.5-10.1); Potassium 3.8 mmol/L (3.5-5.1)
[2019-08-21 07:16] LABS: BUN/Creatinine Ratio 14.6; Bilirubin, Total 0.6 mg/dL (0.2-1.0); Total Protein 7.1 g/dL (6.4-8.2)
--- NOTE | 2019-08-21 07:30 | NUR ---
Opening Shift Note Assumed care of patient, awake and alert. No S/S of distress/SOB or pain. Instructed on POC and to call for assist PRN, will continue to monitor for changes Q1hr and PRN. Fall precautions in place per safety protocol.
--- NOTE | 2019-08-21 08:00 | NUR ---
CLAIRE Drain 75 mls of serous fluid drained.
[2019-08-21 08:30] VITALS: BP 129/49
[2019-08-21] MEDS: ACETAMINOPHEN 500 MG TAB PO PRN ×2 (09:12→17:22)
[2019-08-21] MEDS ORDERED: levoFLOXacin 500MG 100 ML IV SCH (10:00)
[2019-08-21] MEDS: FAMOTIDINE 20 MG TAB PO SCH ×2 (10:29→21:56)
--- NOTE | 2019-08-21 10:30 | NUR ---
Temp Patient running a temp of 102.0 administered available tylenol. Patient reassessment temp is 100.6. Cooling measures provided. Will cont to monitor patient.
[2019-08-21 12:30] VITALS: BP 113/72
--- NOTE | 2019-08-21 14:15 | NUR ---
Hospitalist MD Velazquez at bedside, aware of patient status. New orders received at this time, Will carry out new orders and cont to monitor patient.
[2019-08-21] MEDS ORDERED: VANCOMYCIN PER PHARMACY 0 MG IV SCH (14:30)
--- NOTE | 2019-08-21 14:30 | NUR ---
COVID Swab Covid swab collected and taken to lab by this nurse.
[2019-08-21] MEDS: VANCOMYCIN 1GM/250ML 250 ML IV SCH ×2 (15:12→23:25)
[2019-08-21 16:30] VITALS: BP 122/74
[2019-08-21] MEDS: PIPERACILLIN-TAZOB 3.375GM 100 ML IV SCH (18:06)
[2019-08-21] MEDS: Glucerna Carbsteady SHAKE Vanilla 8oz PO SCH (18:07)
--- NOTE | 2019-08-21 18:30 | NUR ---
Temp Patient running temp of 101.9, administered available tylenol, applied cooling measures and removed blankets. Patient reassessed for temp and temp now shows 101.4. Will cont to apply cooling measures and cont to monitor patient.
--- NOTE | 2019-08-21 18:48 | NUR ---
Hospitalist analytics consultant Spoke to hospitalist on DillonMD Liz regarding patient tempt despite Tylenol administration and cooling measures. Per MD Liz, he will input new orders. Will cont to monitor patient.
[2019-08-21] MEDS ORDERED: FLUCONAZOLE 200MG/100ML 100 ML IV ONE (19:00)
--- NOTE | 2019-08-21 19:10 | NUR ---
Opening Shift Note Assumed care of patient. Patient is awake, alert, and oriented X 4. No S/S of respiratory distress noted. Respirations are regular, non-labored. No pain, nausea, or vomiting reported at this time. Pt is on RA. CLAIRE drain is intact and patient. Bed in lowest possible position, brakes locked, side rails up X 2, call light within reach. POC discussed with the patient. Patient instructed to call for assistance PRN. Will continue to monitor for changes Q1hr and PRN.
--- NOTE | 2019-08-21 19:16 | NUR ---
Endorsed care to night VERO Gutiérrez.
[2019-08-21 20:00] VITALS: BP 120/72
[2019-08-21 22:00] VITALS: BP 120/72
--- NOTE | 2019-08-21 22:00 | NUR ---
Respiratory note: ASSESSED PT FOR PRN TX PT WAS AWAKE AND ALERT, NO RESP DISTRESS NOTED. HR 99, SPO2 96% ON ROOM AIR. BS ARE CLEAR AND DIMINISHED. NO INDICATION FOR TX AT THIS TIME. PT KNOWS TO HAVE RT PAGED IF TX IS NEEDED.
[2019-08-21] MEDS: ACETAMINOPHEN 325 MG TAB PO PRN (22:52)
[2019-08-22] MEDS: HYDROcodone-ACET 5/325MG TAB PO PRN ×3 (00:38→11:27)
[2019-08-22] MEDS: PIPERACILLIN-TAZOB 3.375GM 100 ML IV SCH ×4 (00:39→17:28)
[2019-08-22] MEDS: MORPHINE SULF INJ 2 MG/ML SYRINGE 1ML IV PRN ×2 (03:23→08:54)
[2019-08-22 05:00] VITALS: BP 106/74
[2019-08-22] MEDS: ACCU-CHEK COMFORT CURVE STRIP VI SCH ×4 (06:35→22:00)
[2019-08-22] MEDS: VANCOMYCIN 1GM/250ML 250 ML IV SCH ×3 (06:36→23:22)
[2019-08-22] MEDS: InsuLIN REG 1unit/0.01ml Soln (100units/ml) SC SCH ×3 (06:37→17:00)
[2019-08-22 07:58] LABS: Basophils # (auto) 0 10 ^3/uL (0-0.2); Basophils % (auto) 0.2 % (0.0-2.0); Eosinophils # (auto) 0.1 10 ^3/uL (0-0.8); Eosinophils % (auto) 0.4 % (0.0-7.0); Hemoglobin 11.2 g/dL (12.2-16.2); Lymphocytes # (auto) 1.7 10 ^3/uL (0.4-5.4); Lymphocytes % (auto) 14.1 % (10.0-50.0); Mean Corpuscular Hemoglobin 24.9 pg (28.0-32.0); Mean Corpuscular Hgb Conc. 32.9 g/dL (32.0-36.0); Mean Corpuscular Volume 75.9 fL (80.0-100.0); Monocytes # (auto) 0.9 10 ^3/uL (0-1.3); Monocytes % (auto) 7.1 % (0.0-12.0); Neutrophils # (auto) 9.4 10 ^3/uL (1.6-8.6); Neutrophils % (auto) 78.2 % (37.0-80.0); Platelet Count (auto) 348 10^3/uL (140-450); Red Blood Cells 4.48 10^6/uL (4.0-5.20); Red Cell Distribution Width 16.2 % (11.8-14.3); White Blood Cell 12.1 10^3/uL (4.4-10.8)
[2019-08-22 08:00] VITALS: BP 112/70
[2019-08-22] MEDS: Glucerna Carbsteady SHAKE Vanilla 8oz PO SCH ×3 (08:00→17:43)
[2019-08-22 08:10] LABS: Albumin 2.5 g/dL (3.4-5.0); Calcium 8.6 mg/dL (8.5-10.1); Potassium 3.8 mmol/L (3.5-5.1)
[2019-08-22 08:16] LABS: BUN/Creatinine Ratio 11.5; Bilirubin, Total 0.6 mg/dL (0.2-1.0); Total Protein 7.2 g/dL (6.4-8.2)
[2019-08-22] MEDS ORDERED: FLUCONAZOLE 200MG/100ML 100 ML IV SCH (10:00)
[2019-08-22] MEDS: FAMOTIDINE 20 MG TAB PO SCH ×2 (10:08→23:21)
--- NOTE | 2019-08-22 11:00 | NUR ---
Respiratory note: PT PRN MED NEB ALBUTEROL D'C. PT HAS NOT NEEDED.SINCE ORDERED 2 DAYS AGO.
[2019-08-22] MEDS ORDERED: fentaNYL CITRATE 100 MCG/2 ML VL IV ONE (11:15)
[2019-08-22] MEDS ORDERED: MIDAZOLAM HCL 1MG/1ML-2 ML VIAL IV ONE (11:15)
[2019-08-22] MEDS: HYDROmorphone HCL 2 MG/ML VL IV PRN ×3 (11:49→19:41)
[2019-08-22 13:17] VITALS: BP 119/71
[2019-08-22] MEDS ORDERED: LIDOCAINE 2%HCL (LOCAL ANESTH.) INJ 20ML MDV ONE (13:56)
--- NOTE | 2019-08-22 14:11 | NUR ---
PATIENT OFF UNIT TO RADIOLOGY
--- NOTE | 2019-08-22 15:00 | NUR ---
Temp Patient running a temp of 103.2 administered available tylenol. Patient reassessment temp is 102.2. Cooling measures provided. Will cont to monitor patient.
[2019-08-22] MEDS: ACETAMINOPHEN 325 MG TAB PO PRN (15:48)
[2019-08-22] MEDS: PROMETHAZINE HCL 25 MG/ML 1ML IV PRN (16:27)
[2019-08-22 17:11] VITALS: BP 135/96
--- NOTE | 2019-08-22 17:15 | NUR ---
Temp Patient continues with elevated temp, administered available tylenol, applied cooling measures and removed blankets. Patient reassessed for temp and temp now shows 103.3. Will cont to apply cooling measures and cont to monitor patient. Will notify public relations writer hospitalist.
--- NOTE | 2019-08-22 17:40 | NUR ---
felt cementer Hospitalist paged regarding elevated temperature. Cooling measures still in place. PRN no available.
--- NOTE | 2019-08-22 18:26 | NUR ---
SPOKE TO RESPITE CARE PROVIDER HOSPITALIST, DR VALDERRAMA. UPDATED ON ELEVATED TEMP DESPITE COOLING MEASURES/PRN MED. NO NEW ORDERS RECEIVED. PER MD PATIENT TO CONTINUE COOLING MEASURES AND IF NEED CAN TAKE COLD BATH. WILL CONTINUE TO MONITOR.
[2019-08-22 20:00] VITALS: BP 111/69
[2019-08-23] MEDS: InsuLIN REG 1unit/0.01ml Soln (100units/ml) SC SCH ×5 (00:03→22:19)
[2019-08-23] MEDS: PIPERACILLIN-TAZOB 3.375GM 100 ML IV SCH ×4 (00:22→18:52)
[2019-08-23] MEDS: HYDROmorphone HCL 2 MG/ML VL IV PRN ×4 (02:43→22:17)
--- NOTE | 2019-08-23 04:00 | NUR ---
CLAIRE DRAIN OUTPUT TO LEFT SIDE OF ABD IS 30ML OF CLOUDY LIGHT BROWN FLUID.
[2019-08-23 05:29] VITALS: BP 109/69
[2019-08-23 06:23] LABS: Basophils # (auto) 0 10 ^3/uL (0-0.2); Basophils % (auto) 0.2 % (0.0-2.0); Eosinophils # (auto) 0 10 ^3/uL (0-0.8); Eosinophils % (auto) 0.2 % (0.0-7.0); Hematocrit 31.6 % (36.0-46.0); Hemoglobin 10.2 g/dL (12.2-16.2); Lymphocytes # (auto) 1.6 10 ^3/uL (0.4-5.4); Lymphocytes % (auto) 13.9 % (10.0-50.0); Mean Corpuscular Hemoglobin 24.5 pg (28.0-32.0); Mean Corpuscular Hgb Conc. 32.3 g/dL (32.0-36.0); Mean Corpuscular Volume 75.9 fL (80.0-100.0); Monocytes % (auto) 9.2 % (0.0-12.0); Neutrophils # (auto) 8.7 10 ^3/uL (1.6-8.6); Neutrophils % (auto) 76.5 % (37.0-80.0); Nucleated Red Blood Cells % 0.1 %; Platelet Count (auto) 344 10^3/uL (140-450); Red Blood Cells 4.16 10^6/uL (4.0-5.20); Red Cell Distribution Width 15.7 % (11.8-14.3); White Blood Cell 11.3 10^3/uL (4.4-10.8)
[2019-08-23] MEDS: ACCU-CHEK COMFORT CURVE STRIP VI SCH ×4 (06:40→22:18)
[2019-08-23 06:42] LABS: Potassium 4.1 mmol/L (3.5-5.1)
[2019-08-23] MEDS: HYDROcodone-ACET 5/325MG TAB PO PRN ×2 (06:44→14:19)
[2019-08-23] MEDS: VANCOMYCIN 1GM/250ML 250 ML IV SCH ×3 (06:52→17:35)
[2019-08-23 06:53] LABS: BUN/Creatinine Ratio 11.8; Calcium 8.4 mg/dL (8.5-10.1)
--- NOTE | 2019-08-23 07:30 | NUR ---
Opening Shift Note Assuming care of patient at this time. Patient is awake and alert. Patient complains of pain to lower abdominal area. Bed is locked and lowered with side rails up x2. Instructed patient on the plan of care for today and to call for assistance as needed. Call light within reach. Will continue to round hourly and as needed.
[2019-08-23] MEDS: Glucerna Carbsteady SHAKE Vanilla 8oz PO SCH ×3 (08:00→18:52)
[2019-08-23 09:34] VITALS: BP 111/68
[2019-08-23] MEDS: FAMOTIDINE 20 MG TAB PO SCH ×2 (09:39→22:17)
[2019-08-23] MEDS: FLUCONAZOLE 200MG/100ML 100 ML IV SCH ×2 (12:15→16:30)
--- NOTE | 2019-08-23 12:20 | NUR ---
Surgical/Removal of Drain Spoke with Dr. Vickers regarding patient's CLAIRE drain. Patient initially had an appointment scheduled today to have CLAIRE drain removed. Per Dr. Vickers, patient has had an abscess drained yesterday, therefore he will remove CLAIRE drain tomorrow.
[2019-08-23 12:58] VITALS: BP 111/69
--- NOTE | 2019-08-23 15:23 | NUR ---
Nutrition Assessment Notes Please refer to link for full assessment notes. Est Energy needs: 5208-1254 kcals (17-20 kcal/kgBW) Est Protein needs: 85-114 gms/day (1.5-2.0 gm/kgIBW) d/t pt adiposity Will continue to monitor and reassess prn. Addendum: 08/23/19 at [address] Amended: Links added.
[2019-08-23 16:33] VITALS: BP 124/69
--- NOTE | 2019-08-23 19:30 | NUR ---
Opening Shift Note Received report from jay Muñoz RN. Assumed care of patient, awake and alert. No S/S of distress/SOB or pain. Instructed on POC and to call for assist PRN, will continue to monitor for changes Q1hr and PRN. Bed placed in lowest position and call light within reach.
--- NOTE | 2019-08-23 19:53 | NUR ---
Drainage CLAIRE Drainage was approximately 10mL of serous drainage. Accordion drainage was approximately 25 mL of serosanguineous drainage.
[2019-08-23 20:00] VITALS: BP 111/69
[2019-08-23 22:00] VITALS: BP 122/69
[2019-08-23] MEDS: ACETAMINOPHEN 325 MG TAB PO PRN (22:18)
[2019-08-24] MEDS: PIPERACILLIN-TAZOB 3.375GM 100 ML IV SCH ×2 (00:13→05:56)
[2019-08-24] MEDS: VANCOMYCIN 1GM/250ML 250 ML IV SCH ×2 (00:15→08:30)
--- NOTE | 2019-08-24 00:42 | NUR ---
Patient c/o not being able to sleep. Given sleeping medication as ordered. Will monitor
[2019-08-24] MEDS: HYDROmorphone HCL 2 MG/ML VL IV PRN ×4 (04:30→22:00)
[2019-08-24 05:00] VITALS: BP 116/65
[2019-08-24 05:59] LABS: Basophils # (auto) 0 10 ^3/uL (0-0.2); Basophils % (auto) 0.3 % (0.0-2.0); Eosinophils # (auto) 0.1 10 ^3/uL (0-0.8); Eosinophils % (auto) 0.7 % (0.0-7.0); Hemoglobin 9.7 g/dL (12.2-16.2); Lymphocytes # (auto) 1.2 10 ^3/uL (0.4-5.4); Lymphocytes % (auto) 15.2 % (10.0-50.0); Mean Corpuscular Hemoglobin 24.6 pg (28.0-32.0); Mean Corpuscular Hgb Conc. 32.5 g/dL (32.0-36.0); Mean Corpuscular Volume 75.7 fL (80.0-100.0); Monocytes # (auto) 0.8 10 ^3/uL (0-1.3); Monocytes % (auto) 10.4 % (0.0-12.0); Neutrophils # (auto) 5.6 10 ^3/uL (1.6-8.6); Neutrophils % (auto) 73.4 % (37.0-80.0); Platelet Count (auto) 302 10^3/uL (140-450); Red Blood Cells 3.97 10^6/uL (4.0-5.20); Red Cell Distribution Width 16.1 % (11.8-14.3); White Blood Cell 7.7 10^3/uL (4.4-10.8)
--- NOTE | 2019-08-24 06:00 | NUR ---
CLAIRE DRAIN OUTPUT TO RIGHT SIDE OF ABD IS 5ML OF PINK CLOUDY FLUID
--- NOTE | 2019-08-24 06:00 | NUR ---
CLAIRE DRAIN OUTPUT TO LEFT SIDE OF ABD IS 5ML OF YELLOW FLUID.
[2019-08-24 06:21] LABS: BUN/Creatinine Ratio 12.8; Potassium 3.7 mmol/L (3.5-5.1)
[2019-08-24] MEDS: ACCU-CHEK COMFORT CURVE STRIP VI SCH ×4 (07:00→22:00)
[2019-08-24] MEDS: InsuLIN REG 1unit/0.01ml Soln (100units/ml) SC SCH ×4 (07:45→22:01)
[2019-08-24] MEDS: Glucerna Carbsteady SHAKE Vanilla 8oz PO SCH ×3 (08:00→19:27)
[2019-08-24 08:59] VITALS: BP 116/67
[2019-08-24] MEDS: HYDROcodone-ACET 5/325MG TAB PO PRN ×2 (09:23→20:01)
[2019-08-24] MEDS: FAMOTIDINE 20 MG TAB PO SCH ×2 (09:23→22:03)
[2019-08-24] MEDS: FLUCONAZOLE 200MG/100ML 100 ML IV SCH ×2 (09:45→12:30)
--- NOTE | 2019-08-24 10:00 | NUR ---
CLAIRE Removed CLAIRE Removed by Dr. Vickers.
[2019-08-24 12:50] VITALS: BP 113/73
--- NOTE | 2019-08-24 14:04 | NUR ---
assessment Patient is a 43 year old female who was in pain so I contacted patients daughter Diamante [phone] for my assessment. Per Diamante prior to admission patient lived home with family and was independent. Patient had no need for DME. Per Diamante patients doctors are in [place]. Patient does not want to change doctors and drives back to [place] for appointments. Patient moved to the area about one year ago. Diamante informed me patient came to ER for abdominal pain and was admitted. I informed Diamante patient has no needs identified as of now. I informed Diamante I will continue to monitor and follow up as appropriate. Diamante verbalized understanding and agreed to discharge plan home. Addendum: 08/24/19 at 1408 by Pratibha HAGER Amended: Links added.
[2019-08-24] MEDS: metroNIDAZOLE 500MG/100ML 100 ML IV SCH ×2 (15:34→21:22)
[2019-08-24 17:23] VITALS: BP 120/80
[2019-08-24] MEDS: LINEZOLID 600MG/300ML 300 ML IV SCH (17:40)
--- NOTE | 2019-08-24 19:38 | NUR ---
Closing Shift Note Patient resting in bed. No distress noted. Report given. Will endorse care to the shift stacker RN.
[2019-08-24] MEDS: PROMETHAZINE HCL 25 MG/ML 1ML IV PRN (20:01)
[2019-08-24 22:00] VITALS: BP 133/74
[2019-08-25] MEDS: HYDROmorphone HCL 2 MG/ML VL IV PRN ×4 (03:08→22:41)
[2019-08-25] MEDS: LINEZOLID 600MG/300ML 300 ML IV SCH ×2 (03:40→16:17)
[2019-08-25] MEDS: ACETAMINOPHEN 325 MG TAB PO PRN (04:59)
[2019-08-25 05:00] VITALS: BP 121/68
[2019-08-25] MEDS: metroNIDAZOLE 500MG/100ML 100 ML IV SCH ×3 (05:54→21:20)
[2019-08-25] MEDS: InsuLIN REG 1unit/0.01ml Soln (100units/ml) SC SCH ×4 (06:27→21:42)
[2019-08-25] MEDS: ACCU-CHEK COMFORT CURVE STRIP VI SCH ×4 (07:10→21:20)
--- NOTE | 2019-08-25 07:40 | NUR ---
Report given to Alexsander Wilson, patient is resting no respiratory distress.
[2019-08-25] MEDS: Glucerna Carbsteady SHAKE Vanilla 8oz PO SCH ×3 (08:00→17:58)
--- NOTE | 2019-08-25 08:00 | NUR ---
Opening Shift Note Assumed care of patient, awake and alert. No S/S of distress/SOB or pain. Instructed on POC and to call for assist PRN, will continue to monitor for changes Q1hr and PRN.
[2019-08-25 09:06] VITALS: BP 110/60
[2019-08-25] MEDS: FLUCONAZOLE 200MG/100ML 100 ML IV SCH ×2 (09:46→10:44)
[2019-08-25] MEDS: FAMOTIDINE 20 MG TAB PO SCH ×2 (09:46→21:20)
[2019-08-25] MEDS: HYDROcodone-ACET 5/325MG TAB PO PRN (13:33)
[2019-08-25] MEDS ORDERED: OMNIPAQUE ORAL SOLN 500ml 12mg/ml PO ONE (14:52)
[2019-08-25 16:50] VITALS: BP 136/75
[2019-08-25] MEDS ORDERED: SODIUM CHLORIDE 0.9% 1,000 ML IV ONE (18:00)
--- NOTE | 2019-08-25 19:10 | NUR ---
Patient at CT scan, reports given to emmanuel hughes RN.
[2019-08-25 22:00] VITALS: BP 112/71
[2019-08-26] MEDS: ACETAMINOPHEN 325 MG TAB PO PRN (00:23)
[2019-08-26] MEDS: LINEZOLID 600MG/300ML 300 ML IV SCH ×2 (03:27→16:00)
[2019-08-26] MEDS: HYDROmorphone HCL 2 MG/ML VL IV PRN ×5 (04:02→20:48)
[2019-08-26 05:00] VITALS: BP 115/76
[2019-08-26] MEDS: metroNIDAZOLE 500MG/100ML 100 ML IV SCH ×3 (05:28→21:19)
[2019-08-26] MEDS: ACCU-CHEK COMFORT CURVE STRIP VI SCH ×4 (06:14→21:20)
[2019-08-26] MEDS: InsuLIN REG 1unit/0.01ml Soln (100units/ml) SC SCH ×4 (06:15→21:38)
--- NOTE | 2019-08-26 07:26 | NUR ---
Care report given to Lorraine Melendez, patient is resting no distress.
[2019-08-26] MEDS: Glucerna Carbsteady SHAKE Vanilla 8oz PO SCH ×3 (08:00→18:00)
[2019-08-26 09:00] VITALS: BP 145/89
[2019-08-26] MEDS: FAMOTIDINE 20 MG TAB PO SCH ×2 (09:05→21:20)
[2019-08-26] MEDS: FLUCONAZOLE 200MG/100ML 100 ML IV SCH ×2 (09:05→11:00)
[2019-08-26 14:27] VITALS: BP 129/94
--- NOTE | 2019-08-26 14:43 | NUR ---
Nutrition Followup Notes WT: 84.7 kg Pt was sleeping with no family by bedside. per records pt with pelvic abscess. pt with no distress noted per RN. pt is currently on CCHO 60 gm diet with adequate PO of 75% x 6 per RN doc along with Glucerna 1 carton tid Est Energy needs: 8117-4892 kcals (17-20 kcal/kgBW), Est Protein needs: 85-114 gms/day (1.5-2.0 gm/kgIBW) d/t pt adiposity. Will continue to monitor and reassess prn. LABS: GLU 149 H, CA 8.0 L GI: Pt had 1 BM today per RN doc. BS: 21 low risk. Refer to wound assessment report for full details. PES: 1) Obesity aeb 155% IBW and BMI of 32.4 kg/m2 r/t energy intake in excess of energy needs 2) Food and nutrition related knowledge deficit aeb hyperglycemia, elev A1c r/t pt newly diagnosed as diabetic 3) Altered nutrition related lab values aeb hyponatremia, hyperglycemia, elev A1c, hypocalcemia, mod hypoalbuminemia r/t current/chronic medical condition Comments Will continue to closely monitor pertinent labs, PO intake and skin status prn. Will followup in 3-5 days 1) Continue to closely monitor pt PO intake to meet at least 75% of meals. 2) Refer Pt to a RD/CDE for nutrition education upon D/C. 4) Continue current plan of care
[2019-08-26 22:00] VITALS: BP 116/65
[2019-08-27] MEDS: HYDROmorphone HCL 2 MG/ML VL IV PRN ×6 (01:17→22:13)
[2019-08-27] MEDS: LINEZOLID 600MG/300ML 300 ML IV SCH ×2 (04:10→15:55)
[2019-08-27 05:00] VITALS: BP 117/69
[2019-08-27] MEDS: metroNIDAZOLE 500MG/100ML 100 ML IV SCH ×3 (05:26→22:23)
[2019-08-27] MEDS: ACCU-CHEK COMFORT CURVE STRIP VI SCH ×4 (06:26→22:24)
[2019-08-27 06:31] LABS: Basophils # (auto) 0 10 ^3/uL (0-0.2); Eosinophils # (auto) 0.1 10 ^3/uL (0-0.8); Monocytes # (auto) 0.6 10 ^3/uL (0-1.3); Neutrophils # (auto) 4.6 10 ^3/uL (1.6-8.6); White Blood Cell 7.1 10^3/uL (4.4-10.8)
[2019-08-27 06:34] LABS: Basophils % (auto) 0.4 % (0.0-2.0); Eosinophils % (auto) 1.6 % (0.0-7.0); Hematocrit 30.7 % (36.0-46.0); Hemoglobin 9.9 g/dL (12.2-16.2); Lymphocytes # (auto) 1.7 10 ^3/uL (0.4-5.4); Lymphocytes % (auto) 24.6 % (10.0-50.0); Mean Corpuscular Hemoglobin 24.3 pg (28.0-32.0); Mean Corpuscular Hgb Conc. 32.4 g/dL (32.0-36.0); Monocytes % (auto) 8.4 % (0.0-12.0); Platelet Count (auto) 343 10^3/uL (140-450); Red Blood Cells 4.09 10^6/uL (4.0-5.20); Red Cell Distribution Width 15.2 % (11.8-14.3)
[2019-08-27] MEDS: InsuLIN REG 1unit/0.01ml Soln (100units/ml) SC SCH ×4 (06:34→22:00)
[2019-08-27 06:57] LABS: BUN/Creatinine Ratio 15.4; Calcium 8.6 mg/dL (8.5-10.1)
--- NOTE | 2019-08-27 07:20 | NUR ---
End of Shift Note Endorsed care to dayshift RN. At this time no s/s of distress or SOB.
--- NOTE | 2019-08-27 08:00 | NUR ---
Received pt resting in bed, call light with in reach, pt reports pain to rt buttocks 08/02, will medicate pt as order,
[2019-08-27 09:00] VITALS: BP 125/70
[2019-08-27] MEDS: Glucerna Carbsteady SHAKE Vanilla 8oz PO SCH ×3 (09:04→17:16)
[2019-08-27] MEDS: FAMOTIDINE 20 MG TAB PO SCH ×2 (09:05→22:23)
[2019-08-27] MEDS: FLUCONAZOLE 200MG/100ML 100 ML IV SCH ×2 (09:05→12:12)
[2019-08-27 13:00] VITALS: BP 120/69
--- NOTE | 2019-08-27 15:45 | NUR ---
Dr. Velazquez at bed side to see pt, doctor discussed plan of care with pt.
[2019-08-27] MEDS ORDERED: IOHEXOL 300 MG/ML 100ML BOTTLE IJ ONE (15:51)
[2019-08-27 17:00] VITALS: BP 133/76
[2019-08-27] MEDS: ACETAMINOPHEN 325 MG TAB PO PRN (18:24)
--- NOTE | 2019-08-27 18:39 | NUR ---
Pig tail drain Obtain 15 ml of dark brown drainage. Pig tail drain to rt buttocks, dressing clean dry and intact.
--- NOTE | 2019-08-27 19:12 | NUR ---
Opening Shift Note: Assumed care of patient. Patient is awake, alert and oriented x 4, no s/s of SOB or distress, patient complains of pain 9/10, will medicate for pain per EMAR. Bed is in lowest locked position with two side rails raised and call baldwin within reach. Instructed on POC and encouraged to use call baldwin for assistance, all questions and concerns addressed, patient verbalizes understanding. Will continue to monitor Q1 hr and PRN.
[2019-08-27 22:00] VITALS: BP 128/70
--- NOTE | 2019-08-27 23:00 | NUR ---
LEFT FOREARM IV D/C'D, PRESSURE DRESSING APPLIED. PATIENT TOLERATED WELL.
[2019-08-28] MEDS: HYDROmorphone HCL 2 MG/ML VL IV PRN ×5 (02:37→21:06)
[2019-08-28] MEDS: LINEZOLID 600MG/300ML 300 ML IV SCH ×2 (04:00→16:07)
[2019-08-28 06:00] VITALS: BP 114/65
[2019-08-28 06:30] LABS: Basophils # (auto) 0 10 ^3/uL (0-0.2); Hematocrit 31.5 % (36.0-46.0); Monocytes # (auto) 0.5 10 ^3/uL (0-1.3); Red Blood Cells 4.19 10^6/uL (4.0-5.20); Red Cell Distribution Width 15.7 % (11.8-14.3)
[2019-08-28 06:33] LABS: Basophils % (auto) 0.4 % (0.0-2.0); Eosinophils # (auto) 0.2 10 ^3/uL (0-0.8); Eosinophils % (auto) 2.3 % (0.0-7.0); Hemoglobin 10.1 g/dL (12.2-16.2); Lymphocytes % (auto) 30.1 % (10.0-50.0); Mean Corpuscular Hemoglobin 24.2 pg (28.0-32.0); Mean Corpuscular Hgb Conc. 32.1 g/dL (32.0-36.0); Mean Corpuscular Volume 75.3 fL (80.0-100.0); Monocytes % (auto) 7.2 % (0.0-12.0); Nucleated Red Blood Cells % 0.1 %; Platelet Count (auto) 351 10^3/uL (140-450); White Blood Cell 6.6 10^3/uL (4.4-10.8)
[2019-08-28] MEDS: metroNIDAZOLE 500MG/100ML 100 ML IV SCH ×3 (06:34→20:59)
[2019-08-28] MEDS: InsuLIN REG 1unit/0.01ml Soln (100units/ml) SC SCH ×4 (06:45→21:01)
[2019-08-28 06:56] LABS: BUN/Creatinine Ratio 15.7; Calcium 8.6 mg/dL (8.5-10.1)
[2019-08-28] MEDS: ACCU-CHEK COMFORT CURVE STRIP VI SCH ×4 (07:28→20:59)
[2019-08-28] MEDS: Glucerna Carbsteady SHAKE Vanilla 8oz PO SCH ×3 (08:55→17:31)
[2019-08-28 08:59] VITALS: BP 130/72
[2019-08-28] MEDS: FLUCONAZOLE 200MG/100ML 100 ML IV SCH ×2 (09:49→10:55)
[2019-08-28] MEDS: FAMOTIDINE 20 MG TAB PO SCH ×2 (09:50→20:59)
[2019-08-28 12:31] VITALS: BP 120/76
[2019-08-28 16:55] VITALS: BP 122/84
--- NOTE | 2019-08-28 19:12 | NUR ---
Opening Shift Note: Assumed care of patient. Patient awake, alert and oriented, sitting in chair by the window. No s/s of SOB or distress noted, patient complains of pain 7/10, will medicate for pain per EMAR when due. Instructed on POC and encouraged to use call baldwin for assistance, all questions and concerns addressed, patient verbalizes understanding. Will continue to monitor Q1 hr and PRN.
[2019-08-28 21:00] VITALS: BP 119/72
[2019-08-29] VITALS (13 sets, daily range): BP systolic 115–141; BP diastolic 74–89
[2019-08-29] MEDS: HYDROmorphone HCL 2 MG/ML VL IV PRN ×5 (01:06→21:09)
[2019-08-29] MEDS: LINEZOLID 600MG/300ML 300 ML IV SCH ×2 (03:38→15:39)
--- NOTE | 2019-08-29 03:39 | NUR ---
IV Insertion: New 20 gauge IV inserted to the right AC using clean technique, patient tolerated well.
[2019-08-29] MEDS: metroNIDAZOLE 500MG/100ML 100 ML IV SCH ×3 (05:44→22:35)
[2019-08-29] MEDS: InsuLIN REG 1unit/0.01ml Soln (100units/ml) SC SCH ×4 (06:04→22:00)
[2019-08-29] MEDS: ACCU-CHEK COMFORT CURVE STRIP VI SCH ×4 (06:04→22:45)
[2019-08-29 06:09] LABS: Basophils # (auto) 0 10 ^3/uL (0-0.2); Basophils % (auto) 0.4 % (0.0-2.0); Eosinophils # (auto) 0.1 10 ^3/uL (0-0.8); Eosinophils % (auto) 2.1 % (0.0-7.0); Hemoglobin 10.4 g/dL (12.2-16.2); Lymphocytes # (auto) 1.9 10 ^3/uL (0.4-5.4); Lymphocytes % (auto) 32.8 % (10.0-50.0); Mean Corpuscular Hemoglobin 24.4 pg (28.0-32.0); Mean Corpuscular Hgb Conc. 32.5 g/dL (32.0-36.0); Mean Corpuscular Volume 75.2 fL (80.0-100.0); Monocytes # (auto) 0.4 10 ^3/uL (0-1.3); Monocytes % (auto) 7.3 % (0.0-12.0); Neutrophils # (auto) 3.4 10 ^3/uL (1.6-8.6); Neutrophils % (auto) 57.4 % (37.0-80.0); Nucleated Red Blood Cells % 0.1 %; Platelet Count (auto) 325 10^3/uL (140-450); Red Blood Cells 4.26 10^6/uL (4.0-5.20); Red Cell Distribution Width 15.7 % (11.8-14.3); White Blood Cell 5.9 10^3/uL (4.4-10.8)
[2019-08-29 06:25] LABS: BUN/Creatinine Ratio 15.4; Calcium 8.6 mg/dL (8.5-10.1); Potassium 3.9 mmol/L (3.5-5.1)
--- NOTE | 2019-08-29 07:59 | NUR ---
Opening Note Assumed pt care from NOC RN. Pt is a/ox4 with no s/s of distress or SOB. Pt is currently laying in bed with no complaints at this time. Pt has been NPO since [address] Guided drainage. Pig-tail drain is present to pt's R flank/ back. Minimal to no drainage present in drain. Discussed POC with pt; pt verbalized understanding. Safety measures maintained with call light within reach, bed in lowest position and side rails up. Will continue to monitor.
[2019-08-29] MEDS: Glucerna Carbsteady SHAKE Vanilla 8oz PO SCH ×3 (08:00→18:11)
[2019-08-29] MEDS: FLUCONAZOLE 200MG/100ML 100 ML IV SCH ×2 (09:25→10:54)
[2019-08-29] MEDS: FAMOTIDINE 20 MG TAB PO SCH ×2 (09:25→22:35)
[2019-08-29] MEDS ORDERED: OMNIPAQUE ORAL SOLN 500ml 12mg/ml PO ONE (09:36)
--- NOTE | 2019-08-29 11:40 | NUR ---
Nutrition Followup Notes WT: 83.7 kg Pt was sleeping with no family by bedside. per records pt with pelvic abscess. pt with no distress noted per RN. Pt currently NPO for possible wound drainage 08/28. Prior to NPO pt with adequate po intake aeb avge po intake of 81% x 2days. Pt also with Glucerna 1 carton TID ordered. Est Energy needs: 3517-6896 kcals (17-20 kcal/kgBW), Est Protein needs: 85-114 gms/day (1.5-2.0 gm/kgIBW) d/t pt adiposity. Will continue to monitor and reassess prn. LABS: Gluc 117H, Creat 0.52L, Alb 2.5L GI: Pt had 1 BM today per RN doc. BS: 22 low risk. Refer to wound assessment report for full details. PES: 1) Obesity aeb 155% IBW and BMI of 32.4 kg/m2 r/t energy intake in excess of energy needs 2) Food and nutrition related knowledge deficit aeb hyperglycemia, elev A1c r/t pt newly diagnosed as diabetic 3) Altered nutrition related lab values aeb hyponatremia, hyperglycemia, elev A1c, hypocalcemia, mod hypoalbuminemia r/t current/chronic medical condition Comments Will continue to closely monitor pertinent labs, PO intake and skin status prn. Will followup in 3-5 days 1) Continue to closely monitor pt PO intake to meet at least 75% of meals. 2) Refer Pt to a RD/CDE for nutrition education upon D/C. 4) Continue current plan of care
--- NOTE | 2019-08-29 14:05 | NUR ---
Pt Taken Down to Radiology Taken to radiology via stretcher for procedure. Pt is a/ox4 with no s/s of distress. Addendum: 08/29/19 at 1531 by COLIN MCKENZIE RN RN Pt back on unit. New drain placed to pt's mid-abdomen. R flank drain removed.
[2019-08-29] MEDS ORDERED: fentaNYL CITRATE 100 MCG/2 ML VL ONE (14:06)
[2019-08-29] MEDS ORDERED: MIDAZOLAM HCL 1MG/1ML-2 ML VIAL ONE (14:06)
--- NOTE | 2019-08-29 14:15 | NUR ---
PATIENT ARRIVED VIA BED FOR CT GUIDED DRAINAGE OF ABDOMINAL ABCESS. BASELINE VS: BP 139/80, HR 85, RR 20, SAO2 96% R.A. FENTANYL AND VERSED GIVEN IVP FOR PROCEDURE - SEE MAR. SEE MODERATE SEDATION DOCUMENTATION ON CHART. DRAINAGE WITHDRAWN FROM ABCESS PER DR GUAMAN AND SENT TO LAB FOR PATHOLOGY AND C&S. DRAIN PLACED PER DR GUAMAN TO RIGHT LOWER ABD QUADRANT-TEGADERM PLACED OVER INSERTION SITE. PATIENT TOLERATED PROCEDURE WELL WITH MEDICATIONS GIVEN. CURRENT DRAIN REMOVED FROM LEFT HIP PER DR GUAMAN, DRY STERILE DRSG APPLIED AND COVERED WITH TEGADERM. 1520 PATIENT RETURNED TO ROOM PER BED. ALERT AND ORIENTED X 4 WITHOUT C/O PAIN.
[2019-08-29] MEDS ORDERED: LIDOCAINE 2%HCL (LOCAL ANESTH.) INJ 20ML MDV ONE (14:36)
--- NOTE | 2019-08-29 15:15 | NUR ---
PATIENT RETURNED TO ROOM PER BED AFTER PROCEDURE. CONDITION APPEARS STABLE FOR TRANSPORT.
--- NOTE | 2019-08-29 15:31 | NUR ---
Dr Velazquez at Bedside to see pt. Requests that we start pt back on diet. further stated that we send a culture and sensitivity if not already sent from drainage from new drain. Will continue to monitor.
[2019-08-29] MEDS: HYDROcodone-ACET 5/325MG TAB PO PRN (18:13)
--- NOTE | 2019-08-29 19:42 | NUR ---
Opening Shift Note Received report and assumed care of patient. Patient is awake and alert. No signs or symptoms of distress noted. Instructed patient on plan of care and to call for assistance as needed. Will continue to monitor.
--- NOTE | 2019-08-29 21:09 | NUR ---
Pain Medication Administration Patient complaining of abdominal pain 10/10. Will administer pain medication per MD order. Will reassess pain level and will continue to monitor.
--- NOTE | 2019-08-29 21:39 | NUR ---
Pain Level Reassessment Patient's pain level reassessed to be 6/10. Patient repositioned for comfort, offered nonpharmacological interventions. Will continue to monitor.
[2019-08-30] MEDS: HYDROmorphone HCL 2 MG/ML VL IV PRN ×4 (02:56→18:37)
--- NOTE | 2019-08-30 02:56 | NUR ---
Pain Medication Administration Patient complaining of abdominal pain /. Will administer pain medication per MD order. Will reassess pain level and will continue to monitor.
--- NOTE | 2019-08-30 03:26 | NUR ---
Pain Level Reassessment Patient's pain level reassessed to be 5/10. Patient states pain level is tolerable. Will continue to monitor.
[2019-08-30] MEDS: LINEZOLID 600MG/300ML 300 ML IV SCH ×2 (03:40→16:44)
[2019-08-30 06:00] VITALS: BP 112/70
[2019-08-30] MEDS: metroNIDAZOLE 500MG/100ML 100 ML IV SCH ×3 (06:16→22:01)
[2019-08-30] MEDS: InsuLIN REG 1unit/0.01ml Soln (100units/ml) SC SCH ×4 (06:19→22:00)
[2019-08-30] MEDS: ACCU-CHEK COMFORT CURVE STRIP VI SCH ×4 (06:19→22:02)
--- NOTE | 2019-08-30 07:01 | NUR ---
Pain Medication Administration Patient complaining of abdominal pain /10. Will administer pain medication per MD order. Will endorse pain level reassessment and will continue to monitor.
--- NOTE | 2019-08-30 07:02 | NUR ---
Pigtail Drain No output noted from CLAIRE drain. Will continue to monitor.
--- NOTE | 2019-08-30 07:43 | NUR ---
Opening Note Assumed pt care from NOC RN. Pt is a/ox4 with no s/s of distress or SOB. Pt is currently laying in bed with no complaints at this time. Pigtail drain to pt's abdomen is intact and patent; no drainage present. Discussed POC with pt; pt verbalized understanding. Safety measures maintained with call light within reach, bed in lowest position and side rail up. Will continue to monitor for changes.
[2019-08-30] MEDS: Glucerna Carbsteady SHAKE Vanilla 8oz PO SCH ×3 (08:15→17:23)
[2019-08-30 09:00] VITALS: BP 122/75
[2019-08-30] MEDS: FLUCONAZOLE 200MG/100ML 100 ML IV SCH ×2 (09:03→11:01)
[2019-08-30] MEDS: FAMOTIDINE 20 MG TAB PO SCH ×2 (09:03→22:01)
[2019-08-30 09:41] LABS: Basophils # (auto) 0 10 ^3/uL (0-0.2); Eosinophils # (auto) 0.1 10 ^3/uL (0-0.8); Hemoglobin 10.6 g/dL (12.2-16.2); Lymphocytes # (auto) 1.8 10 ^3/uL (0.4-5.4); Mean Corpuscular Hemoglobin 24.3 pg (28.0-32.0); Monocytes # (auto) 0.4 10 ^3/uL (0-1.3); Neutrophils # (auto) 3.3 10 ^3/uL (1.6-8.6); Red Blood Cells 4.36 10^6/uL (4.0-5.20); White Blood Cell 5.6 10^3/uL (4.4-10.8)
[2019-08-30 09:43] LABS: Basophils % (auto) 0.3 % (0.0-2.0); Hematocrit 32.7 % (36.0-46.0); Lymphocytes % (auto) 32.8 % (10.0-50.0); Mean Corpuscular Hgb Conc. 32.4 g/dL (32.0-36.0); Mean Corpuscular Volume 74.9 fL (80.0-100.0); Monocytes % (auto) 6.8 % (0.0-12.0); Neutrophils % (auto) 59.1 % (37.0-80.0); Platelet Count (auto) 317 10^3/uL (140-450); Red Cell Distribution Width 15.9 % (11.8-14.3)
[2019-08-30 10:04] LABS: BUN/Creatinine Ratio 12.5; Calcium 8.7 mg/dL (8.5-10.1); Potassium 3.9 mmol/L (3.5-5.1)
[2019-08-30 13:00] VITALS: BP 127/77
--- NOTE | 2019-08-30 15:07 | NUR ---
Dr Velazquez at Bedside MD to see pt. Plans to d/c pt home on IV abx. Requests PICC placement. Placed order for Social Service Consult to arrange. Will continue to monitor.
[2019-08-30 17:00] VITALS: BP 122/87
--- NOTE | 2019-08-30 18:48 | NUR ---
Pigtail Drain Output No output present in pigtail drain.
--- NOTE | 2019-08-30 19:44 | NUR ---
Opening Shift Note Received report and assumed care of patient. Patient is awake and alert. No signs or symptoms of distress noted, patient currently denies pain. Instructed patient on plan of care and to call for assistance as needed. Will continue to monitor.
[2019-08-30 22:00] VITALS: BP 125/71
[2019-08-31] MEDS: PROMETHAZINE HCL 25 MG/ML 1ML IV PRN ×2 (01:34→10:25)
[2019-08-31] MEDS: HYDROmorphone HCL 2 MG/ML VL IV PRN (01:34)
--- NOTE | 2019-08-31 01:34 | NUR ---
Pain Medication Administration Patient complaining of abdominal pain /. Will administer pain medication per MD order. Will reassess pain level and will continue to monitor.
--- NOTE | 2019-08-31 02:04 | NUR ---
Pain Level Reassessment Patient asleep for pain level reassessment. No signs or symptoms of distress noted. Will continue to monitor.
[2019-08-31] MEDS: LINEZOLID 600MG/300ML 300 ML IV SCH ×2 (04:06→16:00)
[2019-08-31 05:00] VITALS: BP 118/84
[2019-08-31] MEDS: metroNIDAZOLE 500MG/100ML 100 ML IV SCH (06:13)
[2019-08-31] MEDS: ACCU-CHEK COMFORT CURVE STRIP VI SCH ×4 (06:16→22:03)
[2019-08-31] MEDS: InsuLIN REG 1unit/0.01ml Soln (100units/ml) SC SCH ×4 (06:17→22:06)
--- NOTE | 2019-08-31 07:00 | NUR ---
Opening Shift Note Received report on the patient. Awake lying in bed. Patient shows no signs of distress at this time. Discussed plan of care with the patient. Bed in lowest position, side rails up x2, and call light is within reach.
[2019-08-31 07:40] LABS: Basophils # (auto) 0 10 ^3/uL (0-0.2); Basophils % (auto) 0.3 % (0.0-2.0); Eosinophils # (auto) 0.1 10 ^3/uL (0-0.8); Lymphocytes # (auto) 2.1 10 ^3/uL (0.4-5.4); Mean Corpuscular Hemoglobin 24.6 pg (28.0-32.0); Mean Corpuscular Hgb Conc. 32.6 g/dL (32.0-36.0); Monocytes # (auto) 0.5 10 ^3/uL (0-1.3)
[2019-08-31 07:42] LABS: Eosinophils % (auto) 1.4 % (0.0-7.0); Hematocrit 33.8 % (36.0-46.0); Lymphocytes % (auto) 34.6 % (10.0-50.0); Mean Corpuscular Volume 75.3 fL (80.0-100.0); Monocytes % (auto) 7.5 % (0.0-12.0); Neutrophils # (auto) 3.4 10 ^3/uL (1.6-8.6); Neutrophils % (auto) 56.2 % (37.0-80.0); Platelet Count (auto) 297 10^3/uL (140-450); Red Blood Cells 4.49 10^6/uL (4.0-5.20); Red Cell Distribution Width 15.7 % (11.8-14.3)
[2019-08-31 08:11] LABS: Albumin 2.8 g/dL (3.4-5.0); BUN/Creatinine Ratio 12.1; Bilirubin, Total 0.2 mg/dL (0.2-1.0); Calcium 8.7 mg/dL (8.5-10.1)
[2019-08-31 09:00] VITALS: BP 126/76
[2019-08-31] MEDS: Glucerna Carbsteady SHAKE Vanilla 8oz PO SCH ×3 (10:08→17:43)
[2019-08-31] MEDS: FAMOTIDINE 20 MG TAB PO SCH ×2 (10:09→22:03)
[2019-08-31] MEDS: FLUCONAZOLE 200MG/100ML 100 ML IV SCH (10:09)
--- NOTE | 2019-08-31 10:30 | NUR ---
Spoke to PICC line nurse. She stated that she confirmed with the MD that a midline could be inserted instead of a PICC line.
[2019-08-31 13:00] VITALS: BP_SYST 123; BP_SYST 131; BP_DIAS 82; BP_DIAS 84
--- NOTE | 2019-08-31 15:15 | NUR ---
Midline Placement: Patient educated on need for midline placement. All risks and benefits explained and all questions and concerns addresses prior to procedure. 18g/cm midline inserted via left basilic vein using Ultrasound. Sterile technique utilized. Blood return obtained from lumen and flushed easily with NS using proper technique. Midline secured with saline lock; biodisc and occlusive dressing applied. Primary RN notified. Midline lot #[id number]
--- NOTE | 2019-08-31 16:40 | NUR ---
1600 08/31/19 - Faxed the following to [facility] at [phone] face sheet, order for IV ABx, H/p, labs, meds, progress notes. Per Bre the IV medication requires prior approval. Bre Sebastian patient is from [facility] and will need to return to [facility] to receive meds. Home IV ABx pending approval.
[2019-08-31 16:43] VITALS: BP 131/84
--- NOTE | 2019-08-31 19:20 | NUR ---
Opening Shift Note Assumed care of patient after receiving report. Patient awake and alert with no S/S of distress/SOB or pain. Call light within reach, HOB semi fowlers, bed in lowest position x2 side rails. Instructed on POC and to call for assist PRN, will continue to monitor for changes Q1hr and PRN.
[2019-08-31 22:00] VITALS: BP 117/71
[2019-09-01] MEDS: LINEZOLID 600MG/300ML 300 ML IV SCH ×2 (03:35→16:10)
[2019-09-01] MEDS: PROMETHAZINE HCL 25 MG/ML 1ML IV PRN ×2 (03:35→14:19)
[2019-09-01 05:00] VITALS: BP 127/77
[2019-09-01] MEDS: HYDROmorphone HCL 2 MG/ML VL IV PRN ×3 (05:42→18:04)
--- NOTE | 2019-09-01 06:06 | NUR ---
Pigtail drain Attempted to irrigate drain per MD order. Patient was not tolerating well, unable to complete irrigation. Will continue to monitor.
[2019-09-01] MEDS: ACCU-CHEK COMFORT CURVE STRIP VI SCH ×4 (06:40→21:34)
[2019-09-01] MEDS: InsuLIN REG 1unit/0.01ml Soln (100units/ml) SC SCH ×4 (06:43→21:35)
--- NOTE | 2019-09-01 07:30 | NUR ---
Opening Shift Note Assumed care of patient, awake and alert, sao tomean speaking preferred. No S/S of distress/SOB or pain on room air. Instructed on POC and to call for assist PRN, will continue to monitor for changes Q1hr and PRN. Bed in low and locked position, rails up x2, no-slip socks on.
[2019-09-01 08:00] VITALS: BP 121/63
[2019-09-01] MEDS: Glucerna Carbsteady SHAKE Vanilla 8oz PO SCH ×3 (08:00→18:00)
--- NOTE | 2019-09-01 08:48 | NUR ---
DR SANTANA AT BEDSIDE PENDING IV ANTIBIOTICS TO BE SET UP FOR DISCHARGE.
[2019-09-01 09:00] VITALS: BP 121/63
[2019-09-01] MEDS: FAMOTIDINE 20 MG TAB PO SCH ×2 (09:15→21:34)
[2019-09-01] MEDS: FLUCONAZOLE 100 MG TAB PO SCH (09:16)
--- NOTE | 2019-09-01 12:56 | NUR ---
Nutrition Followup Notes WT: 80.3 kg Pt is in isolation. Pt is s/p s/x for abscess with diet advanced to CCHO 60g. Pt with adequate po intake since diet was advanced aeb pt wtih avg po intake of 75% per RN note. Est Energy needs: 8737-8662 kcals (17-20 kcal/kgBW), Est Protein needs: 85-114 gms/day (1.5-2.0 gm/kgIBW) d/t pt adiposity. Will continue to monitor and reassess prn. LABS: GLUC 158H, Alb 2.8L GI: Pt had 1 BM today per RN doc. BS: 21 low risk. Refer to wound assessment report for full details. PES: 1) Obesity aeb 155% IBW and BMI of 32.4 kg/m2 r/t energy intake in excess of energy needs 2) Food and nutrition related knowledge deficit aeb hyperglycemia, elev A1c r/t pt newly diagnosed as diabetic 3) Altered nutrition related lab values aeb hyponatremia, hyperglycemia, elev A1c, hypocalcemia, mod hypoalbuminemia r/t current/chronic medical condition Comments Will continue to closely monitor pertinent labs, PO intake and skin status prn. Will followup in 3-5 days 1) Continue to closely monitor pt PO intake to meet at least 75% of meals. 2) Refer Pt to a RD/CDE for nutrition education upon D/C. 4) Continue current plan of care
[2019-09-01 13:00] VITALS: BP 124/81
--- NOTE | 2019-09-01 14:00 | NUR ---
ATTEMPT TO IRRIGATE DRAIN USING STERILE TECHNIQUE PER MD ORDERS, UNABLE TO IRRIGATE PIGTAIL DRAIN DUE TO PAIN AND PRESSURE. PATIENT STATED FEELING EXCESS PRESSURE TO LOWER ABDOMEN/ SUPRAPUBIC AREA AND PAIN. BULB DECOMPRESSED AND MEDICATED PATIENT WITH PAIN AND NAUSEA MEDICATIONS.
--- NOTE | 2019-09-01 14:43 | NUR ---
1415 09/01/19 - Contacted by [facility], briefcase sewer Bre, who I informed that patient stated she has moved out of [facility] and not lives in [place], [place]. Bre provided the number for patient to call to change address . Per Bre once address change made all authorizations with come from [facility] briefcase sewer.
--- NOTE | 2019-09-01 15:35 | NUR ---
CALL TO PATIENTS FAMILY TO UPDATE ON NEED FOR FAMILY TO CHANGE PATIENTS INSURANCE LOCATION TO NEW AREA, PATIENTS DAUGHTER STATED THAT THEY HAVE NEVER LIVED IN [facility] AND THAT THAT INSURANCE INFORMATION MUST BE INCORRECT BECAUSE ON CALLING AT THE NUMBER PROVIDED BY CALCULATION CLERK THEY STATED THERE IS AN INDIVIDUAL WITH THE SAME NAME AND DATE IN THAT AREA WITH A DIFFERENT SSN. NEW BIC NUMBER PROVIDED BY DAUGHTER TO THIS NURSE AT THIS TIME, WILL NOTIFY CASE MANAGEMENT AND ADMITTING.
--- NOTE | 2019-09-01 15:40 | NUR ---
PAGE TO DR SANTANA TO UPDATE ON DISCHARGE STATUS AND ISSUES WITH PATIENTS INSURANCE FOR HOME ANTIBIOTICS.
--- NOTE | 2019-09-01 15:45 | NUR ---
PAGE TO DR MI TO NOTIFY DIFFICULTY IN IRRIGATING PIGTAIL DRAIN, ORDERS TO CONSULT RADIOLOGY TO EITHER REPLACE OR REMOVE THE DRAIN TOMORROW.
--- NOTE | 2019-09-01 15:50 | NUR ---
CALL TO ADMITTING TO UPDATE PATIENTS INSURANCE, PER PATIENTS DAUGHTER THEY PROVIDED INCOMPLETE BIC NUMBER ON ADMISSION FROM THE ER.
[2019-09-01 17:00] VITALS: BP 118/75
--- NOTE | 2019-09-01 17:05 | NUR ---
RADIOLOGY NURSE AT BEDSIDE PER RN, SPOKE TO DR GUAMAN AND THEY WILL BE REMOVING THE DRAIN TODAY SINCE PATIENT IS HAVING LITTLE TO NO DRAINAGE.
--- NOTE | 2019-09-01 17:35 | NUR ---
Chiropractic Teacher confirmed with and Dr Larson that abd drain can be removed, both informed of patient's temp at 100.0 this pm. Small amt serosang drng noted in drain. Pigtail removed per sterile technique at bedside. Minimal serosang drng noted at site. no redness or edema noted at site. Chiropractic Teacher cleansed site with chlorhexidine, dry sterile drsg applied and covered with Tegaderm. Patient tolerated fair - states pain is 7/10 pain med not due until 40min. Relaxation and deep breathing encouraged - patient compliant. Resp even and nonlabored.
--- NOTE | 2019-09-01 20:15 | NUR ---
open note assumed care of pt. upon entering room pt awake, alert and oriented x4. pt on room air no distress noted or expressed. pt denies any pain. pt has dressings to right lower quadrant as well as right posterior, both clean dry and intact with no drainage noted. pt updated on plan of care. pt bed locked, low and 2x rails up. pt call light in reach, this nurse to round q1hr and prn. pt encouraged to call as needed.
[2019-09-01 22:00] VITALS: BP 116/76
[2019-09-02] MEDS: PROMETHAZINE HCL 25 MG/ML 1ML IV PRN ×3 (04:00→18:06)
[2019-09-02] MEDS: LINEZOLID 600MG/300ML 300 ML IV SCH ×2 (04:23→15:44)
[2019-09-02 05:00] VITALS: BP 124/71
[2019-09-02] MEDS: ACCU-CHEK COMFORT CURVE STRIP VI SCH ×4 (05:59→21:15)
[2019-09-02] MEDS: InsuLIN REG 1unit/0.01ml Soln (100units/ml) SC SCH ×4 (06:02→21:15)
[2019-09-02 06:19] LABS: Basophils # (auto) 0 10 ^3/uL (0-0.2); Basophils % (auto) 0.4 % (0.0-2.0); Eosinophils # (auto) 0.1 10 ^3/uL (0-0.8); Hemoglobin 11.2 g/dL (12.2-16.2); Mean Corpuscular Volume 75.8 fL (80.0-100.0); Monocytes # (auto) 0.4 10 ^3/uL (0-1.3)
[2019-09-02 06:22] LABS: Eosinophils % (auto) 1.4 % (0.0-7.0); Lymphocytes # (auto) 2.2 10 ^3/uL (0.4-5.4); Neutrophils # (auto) 3.6 10 ^3/uL (1.6-8.6); Neutrophils % (auto) 57.2 % (37.0-80.0); Nucleated Red Blood Cells % 0.1 %; Platelet Count (auto) 301 10^3/uL (140-450); Red Blood Cells 4.48 10^6/uL (4.0-5.20); Red Cell Distribution Width 15.9 % (11.8-14.3); White Blood Cell 6.3 10^3/uL (4.4-10.8)
[2019-09-02 06:42] LABS: Potassium 3.8 mmol/L (3.5-5.1)
[2019-09-02 06:50] LABS: BUN/Creatinine Ratio 21.6; Calcium 8.8 mg/dL (8.5-10.1)
[2019-09-02] MEDS: Glucerna Carbsteady SHAKE Vanilla 8oz PO SCH ×3 (07:58→17:25)
[2019-09-02 09:00] VITALS: BP 121/77
[2019-09-02] MEDS: FAMOTIDINE 20 MG TAB PO SCH ×2 (09:35→21:15)
[2019-09-02] MEDS: FLUCONAZOLE 100 MG TAB PO SCH (09:35)
[2019-09-02 13:00] VITALS: BP 133/77
[2019-09-02 17:00] VITALS: BP 126/78
[2019-09-02 22:00] VITALS: BP 129/83
[2019-09-03] MEDS: LINEZOLID 600MG/300ML 300 ML IV SCH ×2 (04:34→16:33)
[2019-09-03 05:00] VITALS: BP 121/80
[2019-09-03] MEDS: ACCU-CHEK COMFORT CURVE STRIP VI SCH ×4 (06:45→22:00)
[2019-09-03] MEDS: InsuLIN REG 1unit/0.01ml Soln (100units/ml) SC SCH ×4 (06:46→22:00)
--- NOTE | 2019-09-03 07:30 | NUR ---
Opening Shift Note Assumed care of patient, who is alert and oriented x4. Respirations are even and unlabored. No S/S of distress/SOB or pain. Bed is low, locked with 2x side rails up. Call light is within reach. Instructed on POC and to call for assist PRN, will continue to monitor for changes Q1hr and PRN.
[2019-09-03] MEDS: Glucerna Carbsteady SHAKE Vanilla 8oz PO SCH ×2 (08:53→12:17)
[2019-09-03 09:00] VITALS: BP 130/79
[2019-09-03] MEDS: FLUCONAZOLE 100 MG TAB PO SCH (09:14)
[2019-09-03] MEDS: FAMOTIDINE 20 MG TAB PO SCH ×2 (09:14→22:45)
--- NOTE | 2019-09-03 11:56 | NUR ---
Spoke with case management For follow up on patient's consult for home IV abx. Per SS patient's insurance is still pending and patient will have to stay inpatient over the weekend until insurance is sorted out. Will update MD and patient.
[2019-09-03 13:00] VITALS: BP 137/85
[2019-09-03 17:08] VITALS: BP 119/75
--- NOTE | 2019-09-03 20:00 | NUR ---
Opening Shift Note Assumed care of patient, awake and alert. No S/S of distress/SOB or pain. Instructed on POC and to call for assist PRN, will continue to monitor for changes Q1hr and PRN. Abdomen soft and non-distended. [place] to abdomen intact. No drainage. Bed in low position and call light in reach.
[2019-09-03 22:00] VITALS: BP 132/85
[2019-09-04] MEDS: LINEZOLID 600MG/300ML 300 ML IV SCH ×2 (04:00→16:15)
[2019-09-04 05:00] VITALS: BP 127/75
[2019-09-04] MEDS: InsuLIN REG 1unit/0.01ml Soln (100units/ml) SC SCH ×4 (06:35→22:00)
[2019-09-04] MEDS: ACCU-CHEK COMFORT CURVE STRIP VI SCH ×4 (06:52→22:00)
--- NOTE | 2019-09-04 07:00 | NUR ---
Patient awake no distress noted. No complaints of pain. Patient's status endorsed to AM RN.
[2019-09-04] MEDS: Glucerna Carbsteady SHAKE Vanilla 8oz PO SCH ×4 (07:41→18:28)
[2019-09-04 09:00] VITALS: BP 122/70
[2019-09-04] MEDS: FLUCONAZOLE 100 MG TAB PO SCH (09:57)
[2019-09-04] MEDS: FAMOTIDINE 20 MG TAB PO SCH ×2 (09:58→22:26)
[2019-09-04 13:00] VITALS: BP 125/75
--- NOTE | 2019-09-04 14:50 | NUR ---
Nutrition Followup Notes WT: 80.2 kg Pt is s/p s/x for abscess currently on CCHO 60g with adequate PO of > 75% x 4 per RN doc Est Energy needs: 3301-0274 kcals (17-20 kcal/kgBW), Est Protein needs: 85-114 gms/day (1.5-2.0 gm/kgIBW) d/t pt adiposity. Will continue to monitor and reassess prn. LABS: GLU 137 H GI: Pt had 1 BM today per RN doc. BS: 21 low risk. Refer to wound assessment report for full details. PES: 1) Obesity aeb 155% IBW and BMI of 32.4 kg/m2 r/t energy intake in excess of energy needs 2) Food and nutrition related knowledge deficit aeb hyperglycemia, elev A1c r/t pt newly diagnosed as diabetic 3) Altered nutrition related lab values aeb hyponatremia, hyperglycemia, elev A1c, hypocalcemia, mod hypoalbuminemia r/t current/chronic medical condition Comments Will continue to closely monitor pertinent labs, PO intake and skin status prn. Will followup in 3-5 days 1) Continue to closely monitor pt PO intake to meet at least 75% of meals. 2) Refer Pt to a RD/CDE for nutrition education upon D/C. 4) Continue current plan of care
[2019-09-04 17:00] VITALS: BP 131/72
[2019-09-04 22:00] VITALS: BP 132/78
[2019-09-05] MEDS: LINEZOLID 600MG/300ML 300 ML IV SCH ×2 (04:20→16:29)
[2019-09-05 05:10] VITALS: BP 120/70
[2019-09-05] MEDS: ACCU-CHEK COMFORT CURVE STRIP VI SCH ×4 (06:40→22:00)
[2019-09-05] MEDS: InsuLIN REG 1unit/0.01ml Soln (100units/ml) SC SCH ×4 (06:41→22:00)
[2019-09-05] MEDS: Glucerna Carbsteady SHAKE Vanilla 8oz PO SCH ×2 (08:00→12:00)
[2019-09-05 09:00] VITALS: BP 131/76
[2019-09-05] MEDS: FAMOTIDINE 20 MG TAB PO SCH ×2 (10:16→22:13)
[2019-09-05] MEDS: FLUCONAZOLE 100 MG TAB PO SCH (10:16)
[2019-09-05 13:00] VITALS: BP 133/81
--- NOTE | 2019-09-05 13:53 | NUR ---
Hospitalist MD Velazquez at bedside, aware of patient status. Per MD Velazquez, patient will receive the last dose of Linezolid on Thursday. Per MD Velazquez cancel social service consult as there is no longer a need for home antibiotics, home health eval, or PT. Order read back and verified. Will carry out new orders and will cont to monitor patient.
[2019-09-05 17:00] VITALS: BP 125/85
[2019-09-05 23:59] VITALS: BP 121/77
[2019-09-06] MEDS: LINEZOLID 600MG/300ML 300 ML IV SCH ×2 (04:05→14:58)
[2019-09-06 05:37] VITALS: BP 110/70
[2019-09-06 06:30] LABS: Basophils # (auto) 0 10 ^3/uL (0-0.2); Eosinophils # (auto) 0.1 10 ^3/uL (0-0.8); Monocytes # (auto) 0.5 10 ^3/uL (0-1.3)
[2019-09-06 06:32] LABS: Basophils % (auto) 0.5 % (0.0-2.0); Hematocrit 35.4 % (36.0-46.0); Hemoglobin 11.7 g/dL (12.2-16.2); Lymphocytes # (auto) 2.1 10 ^3/uL (0.4-5.4); Lymphocytes % (auto) 34.2 % (10.0-50.0); Mean Corpuscular Hemoglobin 25.1 pg (28.0-32.0); Mean Corpuscular Volume 76.2 fL (80.0-100.0); Monocytes % (auto) 7.4 % (0.0-12.0); Neutrophils # (auto) 3.6 10 ^3/uL (1.6-8.6); Neutrophils % (auto) 56.9 % (37.0-80.0); Platelet Count (auto) 264 10^3/uL (140-450); Red Blood Cells 4.65 10^6/uL (4.0-5.20); White Blood Cell 6.3 10^3/uL (4.4-10.8)
[2019-09-06 06:43] LABS: Calcium 8.9 mg/dL (8.5-10.1)
[2019-09-06 06:48] LABS: BUN/Creatinine Ratio 15.3; Bilirubin, Total 0.4 mg/dL (0.2-1.0); Total Protein 7.8 g/dL (6.4-8.2)
[2019-09-06] MEDS: ACCU-CHEK COMFORT CURVE STRIP VI SCH ×2 (07:24→11:29)
[2019-09-06] MEDS: InsuLIN REG 1unit/0.01ml Soln (100units/ml) SC SCH ×2 (07:28→11:29)
--- NOTE | 2019-09-06 07:40 | NUR ---
Received patient alert and oriented x4, not in distress, diminished lung sounds in bilateral lung lobes, RR= 18 Sat=94% Heart R=76, deep breathing and coughing encouraged, incentive spirometer at bed side, education provided, demonstrated and verbalized understanding, denied chest pain, abdomen soft and active in 4 quadrants, last BM this morning as reported, mid abdominal incisions x3 dry and intact open to air, mid lower suture stapled and intact, abdominal binder on, tolerated provided break fast tray well, general skin intact warm to touch, resting on bed, head of bed elevated, bed on low position, rails up x2, call light on reach, denied pain will continue monitoring.
--- NOTE | 2019-09-06 08:00 | NUR ---
Received patient alert and oriented x4, not in distress, diminished lung sounds in bilateral lung lobes, RR= 18 Sat=94% Heart R=76, deep breathing and coughing encouraged, verbalized understanding, denied chest pain, abdomen soft and active in 4 quadrants, last BM this morning as reported, tolerated provided break fast tray well, general skin intact warm to touch, resting on bed, head of bed elevated, bed on low position, rails up x2, call light on reach, denied pain will continue monitoring.
[2019-09-06 09:00] VITALS: BP 113/79
[2019-09-06] MEDS: FLUCONAZOLE 100 MG TAB PO SCH (10:48)
[2019-09-06] MEDS: FAMOTIDINE 20 MG TAB PO SCH (10:48)
[2019-09-06 12:42] VITALS: BP 135/88
[2019-09-06 13:59] VITALS: BP 127/81
--- NOTE | 2019-09-06 16:40 | NUR ---
D/C INSTRUCTIONS AND EDUCATION PROVIDED, VERBALIZED UNDERSTANDING, PRESCRIPTION AND MEDICATION INFORMATION PROVIDED, FOLLOW UP APPOINTMENT ARRANGEMENT INFORMATION WITH DR. MI PROVIDED, VERBALIZED UNDERSTANDING, D/C MID LINE FROM LT. UPPER ARM, TOLERATED WELL, VS T=98.2 RR=18 SAT=97% P=70 JK=405/75, D/C HOME ON WC, ACCOMPANIED BY FAMILY, TOOK ALL BELONGINGS AND LEFT NOTHING BEHIND.
== END 2019-09-06 16:40 | disposition home or self-care (01) | DRG 720 ==
LOC: ER 05:18 → WEST WING 05:19
PROVIDERS: ADMIT Internal Medicine; ATTEND Internal Medicine
PROC: 0W9J30Z Drainage of Pelvic Cavity with Drainage Device, Percutaneous Approach (ICD-10-PCS; principal; 2019-08-22)
PROC: 0W9J30Z Drainage of Pelvic Cavity with Drainage Device, Percutaneous Approach (ICD-10-PCS; 2019-08-29)
DX: A41.9 Sepsis, unspecified organism (principal); E11.21 Type 2 diabetes mellitus with diabetic nephropathy; E66.9 Obesity, unspecified; D64.9 Anemia, unspecified; J98.11 Atelectasis; E87.1 Hypo-osmolality and hyponatremia; N73.9 Female pelvic inflammatory disease, unspecified; B95.2 Enterococcus as the cause of diseases classified elsewhere; L98.8 Other specified disorders of the skin and subcutaneous tissue; E11.65 Type 2 diabetes mellitus with hyperglycemia; Z16.21 Resistance to vancomycin; Z80.9 Family history of malignant neoplasm, unspecified; Z83.3 Family history of diabetes mellitus; Z87.442 Personal history of urinary calculi; Z90.49 Acquired absence of other specified parts of digestive tract; Z20.828 Contact with and (suspected) exposure to other viral communicable diseases; E44.0 Moderate protein-calorie malnutrition; Z68.33 Body mass index [BMI] 33.0-33.9, adult; N39.0 Urinary tract infection, site not specified
CPT/HCPCS: 10022; 36415; 71045; 72192; 72193; 74176; 74177; 77012; 80048; 80053; 80202; 81001; 82962; 83036; 83605; 83690; 83735; 84702; 85025; 85610; 85730; 87040; 87077; 87081; 87086; 87088; 87186; 87205; C1729; G0378; J1450; J1815; J1956; J2250; J2543; J3490